=== PATIENT | male | born 1930 | race Caucasian/White ===

== ENCOUNTER 2016-06-16 20:30 | Inpatient (IN) ==
[2016-06-16] MEDS ORDERED: Naloxone 0.4 MG/ML INJ IVP PRN (23:41)
[2016-06-16] MEDS ORDERED: 0.9 % Sodium Chloride 1,000 ML IVC SCH (23:45)
[2016-06-16] MEDS ORDERED: *HR* LORazepam 2 MG/ML VIAL IVP STA (23:45)
--- NOTE | 2016-06-16 23:45 | Internal Med History&Physical ---
Date of Encounter: 06/16/16 Time of Encounter: 23:30 Assessment and Plan (1) Elevated troponin I level Current visit: Yes Status: Acute though he has a history of CAD s/p CABG, he has been symptoms free since 2005, he denies chest pain, he also has no other symptoms suggestive of angina equivalent, his elevated troponin is also in the setting of MINH, thus his elevated troponin is from poor renal clearance and not from ACS, we will recheck his troponin in the morning, if normal we will discharge him home for outpatient followup, if elevated in the setting of normal creatinine we will consider a 2D Echo for wall motion abnormality (2) MINH (acute kidney injury) Current visit: Yes Status: Acute most likely from dehydration, we will hydrate and follow BMP, additionally we will avoid nephrotoxins and renally dose all medications (3) Abdominal pain Current visit: Yes Status: Acute this is chronic, we will manage with pain medications and consider further investigations if it does not improve Qualifiers: Abdominal location: generalized Qualified Code(s): R10.84 - Generalized abdominal pain (4) Chronic atrial fibrillation Current visit: Yes Status: Chronic patient is not on systemic anticoagulation or rate control medications, unclear why, his rate is controlled however, we will monitor for now, he will benefit from low dose beta blockade if no contraindication is found (5) Compression fracture of T12 vertebra Current visit: Yes Status: Chronic will continue pain management with his home pain regimen Qualifiers: Encounter type: sequela Qualified Code(s): M48.54XS - Collapsed vertebra, not elsewhere classified, thoracic region, sequela of fracture (6) Hypothyroidism Current visit: Yes Status: Chronic will continue home dose of synthroid Qualifiers: Hypothyroidism type: postablative Qualified Code(s): E89.0 - Postprocedural hypothyroidism (7) Anxiety Current visit: Yes Status: Chronic will continue home medications Internal Medicine - H&P: HPI Chief complaint: abdominal pain Admitted From: Hospital to Hospital Transfer Plans for Post Hospital Care: Home History of present illness: Mr. Rodriguez is a 85 year old male with a history of intermittent abdominal discomfort who was seen at [facility] with abdominal discomfort on 06/16/16. He reports that this has been ongoing since May 2016 with minimal improvement in his symptoms. This has been associated with bloating sensation and loose stools at the time. At [facility] his troponin was slightly elevated in the setting of elevated creatinine but due to his prior history of CAD s/p CABG in 2005 there was concern for possible ACS though he denied chest pain. He also denied shortness of breath, palpitations, lightheadedness, nausea or vomiting. He reports that since his CABG he has not had any cardiac problems, most recent stress test was 2-3 years ago which was normal. Past Med Surg Social Fam HX - Past Medical History Medical history: arthritis, coronary artery disease, hyperlipidemia, hypertension, peripheral artery disease, thyroid disease Psychiatric history: anxiety, depression - Past Surgical History Surgical History: appendectomy, coronary bypass (CABG) (2005), other ( tonsillectomy, skin tumour removal, ) - Social History Smoking Status: Former smoker Smokeless Tobacco Status: No Alcohol use: none Drug use: none Current living situation: Home - Independent, With Family - Family History Father Living Status: Hx Family Cardiac Disorders: Yes Brother Hx Family Cardiac Disorders: Yes Mother Living Status: Hx Family Cardiac Disorders: Yes Internal Medicine - H&P: Meds Amlodipine [Norvasc] 5 mg PO DAILY 10/26/15 [History] Atorvastatin [Lipitor] 80 mg PO HS 10/26/15 [History] Ezetimibe [Zetia] 10 mg PO DAILY 10/26/15 [History] Telmisartan [Micardis] 80 mg PO DAILY 10/26/15 [History] Docusate [Colace] 100 mg PO BID PRN 11/13/15 [History] Polyethylene Glycol 3350 [MiraLAX] 17 gm PO DAILY 11/13/15 [History] Levothyroxine [Synthroid] 150 mcg PO DAILY@0630 #30 tablet 11/15/15 [Rx] Alprazolam [Xanax 0.25 MG Tablet] 0.25 mg PO TID 06/03/16 [History] Aspirin 81 mg PO DAILY 06/16/16 [History] Buspirone HCl [Buspar] 5 mg PO TID 06/16/16 [History] HYDROcodone/Acet 5/325 mg [[place] 5-325 mg] 1 tab PO Q6H PRN 06/16/16 [History] Naloxegol Oxalate [Movantik] 25 mg PO DAILY 06/16/16 [History] Sertraline [Zoloft] 50 mg PO DAILY 06/16/16 [History] Allergies lactose Allergy (Verified 06/16/16 19:56) Vomiting All Systems PM: A 10-system review of systems was performed and is negative for pertinent findings except as documented above in the HPI. - Constitutional Constitutional: no chills, no fever(s), no night sweats - EENT Eyes: no change in vision, no discharge, no pain, no photophobia Ears: no ear discharge, no ear pain, no tinnitus Nose, mouth and throat: no dysphagia, no nasal discharge, no neck pain, no sore throat - Cardiovascular Cardiovascular ROS IM: no chest pain, no diaphoresis, no dyspnea, no lightheadedness, no palpitations, no syncope - Respiratory Respiratory: no cough, no dyspnea, no wheezing, no excessive phlegm production - Gastrointestinal Gastrointestinal: abdominal pain, belching, bloating, loose stools, no cramping , no dysphagia, no early satiety, no nausea, no vomiting - Genitourinary Genitourinary ROS male: no difficulty urinating, no dysuria - Musculoskeletal Musculoskeletal ROS IM: no numbness, no tingling - Integumentary Integumentary IM: other (nail changes on the left hand), no rash, no unusual bruising - Neurological Neurological ROS: no confusion, no convulsions, no focal weakness, no numbness, no tingling, no tremor(s) - Psychiatric Psychiatric: anxiety, no hallucinations, no hopelessness - Endocrine Endocrine IM: fatigue, no excessive sweating - Allergic/Immunologic Allergic/Immunologic: as per HPI - Constitutional Vitals: Temp Pulse Resp BP Pulse Ox 98.0 F 57 16 146/82 98 06/16/16 21:10 06/16/16 21:10 06/16/16 21:10 06/16/16 21:10 06/16/16 21:10 - General General appearance: Elderly male, lying in bed calmly, hands held in front of him, visible tremors at rest noted in both hands, alert, anxious - Head Head exam: atraumatic, normocephalic, normal inspection - Eye Eye exam: Present: normal appearance, PERRL, EOMI - ENT ENT exam: normal exam, normal oropharynx, mucous membranes moist - Chest Chest inspection: Present: normal inspection, symmetric chest wall rise. Absent : tenderness - Respiratory Respiratory exam: Present: normal lung sounds bilaterally - Cardiovascular Cardiovascular exam: Present: regular rate, irregularly irregular rhythm, systolic murmur noted, no pedal edema - Abdominal Exam Abdominal exam: Present: soft, Non-Tender, normal bowel sounds. Absent: tenderness, distention, guarding, rebound, rigidity - Extremities Exam Extremities exam: Present: normal inspection, full ROM. Absent: tenderness, pedal edema, chronic nail changes on all fingers of the left hand only - Back Exam Back exam: Present: normal inspection, full ROM. Absent: tenderness - Neurological Exam Neurological exam: Present: alert, oriented X3, CN 2-12 grossly intact, non focal motor and sensory exam - Psychiatric Psychiatric exam: looked calm at the time of exam - Skin Skin exam: Present: warm, dry, intact, normal color Internal Med - H&P Results - EKG Data -: EKG Interpreted by Myself (rate controlled AFIB, no ischemic changes)
[2016-06-17] MEDS: Melatonin 3 MG TABLET PO SCH ×2 (00:30→21:33)
[2016-06-17] MEDS: *HR* Heparin 5,000 UNIT/ML VIAL SQ SCH ×3 (05:37→21:34)
[2016-06-17 06:40] LABS: BUN/Creatinine Ratio 23 (6-26); Blood Urea Nitrogen 31 mg/dL (8-26); Calcium 8.7 mg/dL (8.6-10.8); Carbon Dioxide 29 mEq/L (19-29); Chloride 97 mEq/L (98-109); Glucose 78 mg/dL (70-99); Magnesium 2.2 mg/dL (1.6-2.6); Osmolality,Calculated 279 (280-300); Phosphorous 3.2 mg/dL (2.3-4.7); Potassium 4.5 mEq/L (3.5-4.5); Sodium 132 mEq/L (136-145); eGFR For African Americans > 60 (> 60); eGFR For Non-African Americans 51 (> 60)
[2016-06-17] MEDS: ALPRAZolam 0.25 MG TABLET PO SCH ×3 (08:26→21:33)
[2016-06-17] MEDS: Aspirin 81 MG TAB.CHEW PO SCH (08:26)
[2016-06-17] MEDS: ZETIA 10MG PO SCH (08:26)
[2016-06-17] MEDS ORDERED: amLODIPine 5 MG TABLET PO SCH (09:00)
--- NOTE | 2016-06-17 11:20 | Cardiology Consult Note ---
Date of Encounter: 06/17/16 Time of Encounter: 11:15 Assessment and Plan (1) Atrial fibrillation with slow ventricular response Current Visit: Yes Status: Acute H/o chronic afib. Now with symptomatic afib with slow ventricular response and pauses up to 4.6 seconds. Currently not on AV prakash yolie. Check TTE. TSH normal. Electrolytes normal. Avoid AV prakash blockers. Currently hemodynamicaly stable. Will consult with electrphysiology, Dr. Andrea Dunn. Eliquis d/c'd d/t fall risk. Now ambulating without walker and denies falls. Consider restarting eliquis prior to d/c. Discussed with patient and and they are agreeable if indicated. (2) CAD (coronary artery disease) Current Visit: Yes Status: Acute S/p 4V bypass in 2005. Stress test 3-4 years ago that was normal per . Would like f/u with [facility]. Continue asa and statin. No AV prakash blockers d/t bradycardia. Qualifiers: Coronary Disease-Associated Artery/Lesion type: [place] artery [place] vs. transplanted heart: [place] heart Associated angina: angina presence unspecified Qualified Code(s): I25.10 - Atherosclerotic heart disease of [place] coronary artery without angina pectoris (3) Elevated troponin Current Visit: Yes Status: Acute Mild troponin elevation at 0.22, 0.26. May be demand ischemia in the setting of MINH and severe bradycardia. Continue to trend troponin and check echo. Currently pain free. Discussion w patient/family: The assessment and plan as outlined above was discussed with the patient and/or family members who expressed understanding and agreement. All questions were answered. Thank you for involving us in the care of your patient. Please call with any questions. History of Present Illness Consult date: 06/17/16 Requesting physician: Quique Davis Consult reason: atrial fibrillation with slow ventricular response Chief complaint: abdominal pain, gas, bloating History of present illness: Mr. Rodriguez is a 85 year old male with a history of CAD s/p CABG following with Dr. James in [place], chronic afib, HTN, and HLD. He presented to [facility] with pain all over and abdominal pain and bloating. He has chronic 'gas pains" since last year after fracturing his T12 spine. He also c/o panic attacks since then. He describes his discomfort as a fullness/ pressure from his midepigastric area to his upper chest. He also occasionally has pain in his left elbow associated with his pain. He admits to dizziness at rest or lightheadedness. He sometimes feels he is going to pass out. All of his symptoms seemed to start after his back fracture. Since his back fracture he does minimal activity. Denies increased discomfort with activity. His initial work-up revealed troponin 0.22 so he was transferred to [place] for further evaluation. He was seen two weeks prior with similar symptoms and troponin was negative at that time. Overnight he was seen to have atrial fibrillation with slow ventricular response and pauses up to 4.6 seconds long. Cardiology consulted for further evaluation. Reports eliquis being discontinued by PCP after back fracture d/t fall risk. On my exam he is symptom free sitting in bed. HR currently in the 40's. Past Med Surg Social Fam HX - Past Medical History Medical history: arthritis, atrial fibrillation, coronary artery disease, hyperlipidemia, hypertension, peripheral artery disease, thyroid disease, other (thoracic and lumbar spine fractures.) Psychiatric history: anxiety, depression - Past Surgical History Surgical History: appendectomy, coronary bypass (CABG) (2005), other ( tonsillectomy, skin tumour removal, ) - Social History Smoking Status: Former smoker Smokeless Tobacco Status: No Alcohol use: none Drug use: none - Family History Father Living Status: Hx Family Cardiac Disorders: Yes Brother Hx Family Cardiac Disorders: Yes Mother Living Status: Hx Family Cardiac Disorders: Yes Medications and Allergies Amlodipine [Norvasc] 5 mg PO DAILY 10/26/15 [History] Atorvastatin [Lipitor] 80 mg PO HS 10/26/15 [History] Ezetimibe [Zetia] 10 mg PO DAILY 10/26/15 [History] Telmisartan [Micardis] 80 mg PO DAILY 10/26/15 [History] Docusate [Colace] 100 mg PO BID PRN 11/13/15 [History] Polyethylene Glycol 3350 [MiraLAX] 17 gm PO DAILY 11/13/15 [History] Levothyroxine [Synthroid] 150 mcg PO DAILY@0630 #30 tablet 11/15/15 [Rx] Alprazolam [Xanax 0.25 MG Tablet] 0.25 mg PO TID 06/03/16 [History] Aspirin 81 mg PO DAILY 06/16/16 [History] Buspirone HCl [Buspar] 5 mg PO TID 06/16/16 [History] HYDROcodone/Acet 5/325 mg [[place] 5-325 mg] 1 tab PO Q6H PRN 06/16/16 [History] Naloxegol Oxalate [Movantik] 25 mg PO DAILY 06/16/16 [History] Sertraline [Zoloft] 50 mg PO DAILY 06/16/16 [History] Allergies lactose Allergy (Verified 06/16/16 19:56) Vomiting All Systems Review: A 10-system review of systems was performed and is negative for pertinent findings except as documented above in the HPI. Physical Examination Vital Signs, Last 4 Hours Temp Pulse Resp BP Pulse Ox 06/17/16 11:07 97.7 F 55 16 156/77 100 06/17/16 08:39 100 General: Conversant, No Apparent Distress, Other (Frail elderly male.) HEENT: Atraumatic, Normocephaly, Mucus Membranes Moist Neck: No JVD, Normal carotid pulses Cardiac: Other (Irregularly irregular.) Lungs: Normal Breath Sounds, No Wheeze, Rales, Rhonchi Neuro: Alert and responsive, No focal deficits noted Abdomen: Soft, Non-Tender Skin: No rashes noted on visualized skin Musculoskeletal: No Chest Wall Tenderness Extremities: No Clubbing, No Cyanosis, No Edema, Normal Pulses Results 06/17/16 05:37 Lab Results 06/17/16 06/17/16 06/17/16 05:37 05:37 08:20 Sodium 132 L Potassium 4.5 Chloride 97 L Carbon Dioxide 29 BUN 31 H Creatinine 1.34 H Glucose 78 Calcium 8.7 Magnesium 2.2 Troponin I 0.26 H* TSH 0.738 - Imaging and Cardiology Echo: report reviewed (11/2015-EF 65%, moderate to severely dilated LA, moderate tricuspid regurgitation, moderate pulmonary hypertension. RVSP 54) - EKG Interpretation EKG results cardiology: personally reviewed (ATrial fibrillation, HR 76, no acute ST changes.) Consult Discharge Plan - Plan Referrals: Saul Rice MD [Primary Care Provider] -
--- NOTE | 2016-06-17 19:20 | Internal Med Progress Note ---
Date of Encounter: 06/17/16 Time of Encounter: 10:00 - Assessment and plan (1) Chronic atrial fibrillation Current Visit: Yes Status: Chronic Assessment and plan: Bradycardic. Occasionally has dizziness. Card evaluation - anticipate pacemaker in the future. (2) Constipation Current Visit: No Status: Acute Assessment and plan: Chronic condition. Continue supportive medications. Qualifiers: Constipation type: other constipation type Qualified Code(s): K59.09 - Other constipation (3) Compression fracture of T12 vertebra Current Visit: Yes Status: Chronic Assessment and plan: Pain control. Supportive care at this time. Qualifiers: Encounter type: sequela Qualified Code(s): M48.54XS - Collapsed vertebra, not elsewhere classified, thoracic region, sequela of fracture (4) Hypothyroidism Current Visit: Yes Status: Chronic Assessment and plan: Continue supplementation. Qualifiers: Hypothyroidism type: postablative Qualified Code(s): E89.0 - Postprocedural hypothyroidism (5) MINH (acute kidney injury) Current Visit: Yes Status: Acute Assessment and plan: Recheck labs tomorrow. (6) CAD (coronary artery disease) Current Visit: Yes Status: Acute Assessment and plan: Cardiology eval. Continue current management. Qualifiers: Coronary Disease-Associated Artery/Lesion type: [place] artery [place] vs. transplanted heart: [place] heart Associated angina: angina presence unspecified Qualified Code(s): I25.10 - Atherosclerotic heart disease of [place] coronary artery without angina pectoris - Subjective Interval history: Mr. Rodriguez is currently admitted for bradycardia and elevated troponin. He is high risk due to potential for worsening cardiac status. Mr. Rodriguez is having some back pain from the vertebral fracture. No CP or SOB. Heart rate has been 30-50. Dizzy occasionally. Denies other issues at this time. No fever or chills. - Constitutional Vitals: Temp Pulse Resp BP Pulse Ox 97.4 F L 42 16 148/82 98 06/17/16 15:37 06/17/16 15:37 06/17/16 15:37 06/17/16 15:37 06/17/16 15:37 General appearance: Present: A&O X 3, pleasant, answers questions appropriately - Head Head exam: Present: normocephalic - Eye Eye exam: Present: EOMI, conjuntiva pink - ENT ENT exam: Present: mucous membranes moist - Respiratory Respiratory exam: Present: decreased breath sounds, CTAB - Cardiovascular Cardiovascular exam: Present: bradycardia, irregular rhythm - GI/Abdominal GI/Abdominal exam: Present: soft, tenderness (Diffuse discomfort with no peritoneal signs.) - Extremities Exam Extremities exam: Present: warm. Absent: tenderness - Neurological Exam Neurological exam: Present: alert, oriented X3 - Psychiatric Psychiatric exam: Present: normal affect, normal mood - Skin Skin exam: Present: warm. Absent: rash Internal Medicine: Result - Labs CBC & Chem 7: 06/17/16 05:37 Labs: BMP 06/17/16 05:37 Sodium 132 L Potassium 4.5 Chloride 97 L Carbon Dioxide 29 BUN 31 H Creatinine 1.34 H Glucose 78 Calcium 8.7 Cardiac Enzymes 06/17/16 06/17/16 Range/Units 05:37 16:01 Troponin I 0.26 H* 0.23 H* (0-0.03) ng/mL Consult Discharge Plan - Plan Instructions: Myocardial Infarction (DC), Atrial Fibrillation (DC), Chest Pain (DC), Vertebral Compression Fracture (DC), Vertebral Compression Fracture (GEN) , Hypothyroidism (DC) Referrals: Saul Rice MD [Primary Care Provider] -
[2016-06-18] MEDS: *HR* Heparin 5,000 UNIT/ML VIAL SQ SCH ×2 (05:32→16:13)
[2016-06-18 06:33] LABS: Calcium 8.5 mg/dL (8.6-10.8); Magnesium 2.3 mg/dL (1.6-2.6); Potassium 4.6 mEq/L (3.5-4.5)
--- NOTE | 2016-06-18 06:47 | ECHO - Doppler Report ---
Echocardiogram Name: Sarabjit Rodriguez Date of Study: 06/17/2016 Date: 1930 Ht: 63.0 in Medical Record#: [id number] Age: 85 Wt: 142.0 lb Gender: Male BSA: 1.67 Order #: [id number] Location: [facility] Room #: [id number] Reading Physician: Shadi Vazquez MD, [facility] Insurance Sales Supervisor: Seble Pollack RDCS Ordering Physician: Richard Solis CNP Primary Physician: Saul Rice MD Indications: Elevated Troponin, Bradycardia Impressions: Atrial fibrillation with slow ventricular response. Normal LV systolic function, LVEF 65-70%. Right ventricle was not well visualized. It appears grossly normal in size and function. Moderately dilated left atrium. No significant valvular dysfunction. Mild pulmonary hypertension, estimated RVSP = 39 mmHg. Left Ventricular Wall Motion: Rest Echo Findings All wall segments showed normal motion. Findings: Study Quality * Suboptimal echo windows. ECG Findings * Atrial fibrillation with slow ventricular response. Left Ventricle * Normal LV systolic function, LVEF 65-70%. * Normal LV chamber size and wall thickness. * Indeterminate diastolic function due to atrial fibrillation. Right Ventricle * Right ventricle was not well visualized. It appears grossly normal in size and function. Left Atrium * Moderately dilated left atrium. Right Atrium * Normal right atrial size. Aorta * Normally sized aortic root. Pericardium * There is no pericardial effusion present. IVC * The IVC was not visualized. Aortic Valve * Aortic valve not well visualized. Appears moderately sclerotic. * No aortic stenosis. * Trace aortic regurgitation. Mitral Valve * Mild mitral annular calcification * No mitral stenosis. * Trace mitral regurgitation. Tricuspid Valve * Tricuspid valve not well visualized. * No tricuspid stenosis. * Trace tricuspid regurgitation. * Mild pulmonary hypertension, estimated RVSP = 39 mmHg. Pulmonic Valve * Pulmonic valve not well visualized. * No pulmonic stenosis. * No pulmonic regurgitation. History Hypertension Hypercholesteremia Family History of CAD History of CAD/PTCA Coronary Artery Bypass Graft 11/14/2015 a Previous Echo was performed. Measurements: BP: 156/ 77 2D Normal Values IVSd: 1.00 cm 0.6 - 1.0 cm LVIDd: 4.10 cm 3.7 - 5.6 cm LVPWd: 1.00 cm 0.6 - 1.1 cm LVIDs: 2.50 cm 1.5 - 3.6 cm AO: 3.00 cm < 4.0 cm LA volume: 70 Mitral Valve Peak E:1.19 m/sec Peak E' Lat Edy:7.29 cm/s Peak E' Med Edy:6.2 cm/s E/E' Lat Ratio:16.3 E/E' Med Ratio:19.2 Tricuspid Valve TV Regurg Peak Grad: 34.00mmHg TV Regurg Peak Edy: 2.91m/sec Updated by Shadi Vazquez MD, [facility] on 06/18/2016 6:41:07 AM electronically signed on 06/18/2016 6:41:38 AM with status of Final Wall Motion [place]: 1=Normal, 2=Hypokinesis, 3=Akinesis, 4=Dyskinesis, 5=Aneurysmal, 6=Hyperkinetic, X=Not Visualized (Blank)=Missing
[2016-06-18] MEDS: *HR* HYDROcodone/Acet 5/325 mg TABLET PO PRN ×2 (07:36→13:12)
[2016-06-18] MEDS: Simethicone 80 MG TAB.CHEW PO PRN ×3 (07:36→19:33)
[2016-06-18 08:06] LABS: Hematocrit 37.7 % (37.5-50.1); Immature Platelets 1.3 % (1.1-6.1); Mean Corpuscular HGB Conc 34.5 g/dL (31.6-35.5); Mean Corpuscular Hemoglobin 32.3 pg (28.0-33.3); Mean Corpuscular Volume 93.5 fL (83.0-100.0); Mean Platelet Volume 8.8 fL (9.4-12.4); Red Blood Count 4.03 M/mcL (4.19-5.50)
[2016-06-18] MEDS: ALPRAZolam 0.25 MG TABLET PO SCH ×2 (08:44→16:13)
[2016-06-18] MEDS: Aspirin 81 MG TAB.CHEW PO SCH (08:44)
[2016-06-18] MEDS: ZETIA 10MG PO SCH (08:45)
--- NOTE | 2016-06-18 15:11 | Cardiology Progress Note ---
Date of Encounter: 06/18/16 Time of Encounter: 14:30 Assessment and Plan (1) Atrial fibrillation with slow ventricular response Current Visit: Yes Status: Acute Initial presentation abdominal pain and bloating/gas pains. H/o chronic afib. Case was discussed with EP yesterday; no emergent need for PPM, recommend outpatient follow-up with EP for PPM evaluation. TSH normal, no acute electrolyte abnormalities. HR 50-60's afib at bedside upon exam. 12 hour tele: avg HR=47. Longest pause 3.8 seconds--nocturnal hours. HR 30's during nocturnal hours. He reports dizziness with abrupt position change in the morning only--resolves after a few seconds-minutes. TTE 06/18/16: EF 65-70%, moderately dilated left atrium, no significant valvular dysfunction, normal wall motion. No further inpatient recommendations from Cardiology standpoint. He will be contacted by Cardio office early next week with appointment date and time. (2) Elevated troponin I level Current Visit: Yes Status: Acute Elevated troponin in the setting of abdominal pain, bradycardia, and MINH. He denies chest pain or discomfort. Hx of bypass in 2005. Continue asa and statin. No betablocker due to bradycardia. TTE shows preserved LVEF, 65-70%, moderately dilated left atrium, no significant valvular dysfunction, normal wall motion. (3) CAD (coronary artery disease) Current Visit: Yes Status: Acute S/p 4V bypass in 2005. Stress test 3-4 years ago that was normal per . Would like f/u with [facility]. Continue asa and statin. No AV prakash blockers d/t bradycardia. Qualifiers: Coronary Disease-Associated Artery/Lesion type: [place] artery [place] vs. transplanted heart: [place] heart Associated angina: without angina Qualified Code(s): I25.10 - Atherosclerotic heart disease of [place] coronary artery without angina pectoris (4) MINH (acute kidney injury) Current Visit: Yes Status: Acute SCr remains elevated, previously normal. Defer further recommendations to primary service. Discussion w patient/family: The assessment and plan as outlined above was discussed with the patient and/or family members who expressed understanding and agreement. All questions were answered. Thank you for involving us in the care of your patient. Please call with any questions. The patient will be discussed and reviewed with Dr. Morocho; changes to be made accordingly. Subjective Principal diagnosis: Abdominal pain Interval history: Seen and examined. Reports lower abdominal pain and gas pain this morning and afternoon. 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 Denies dizziness, lightheadedness, syncope, or palpitations overnight. Objective General: Conversant, No Apparent Distress HEENT: Atraumatic, Normocephaly Cardiac: Other (irregularly irregular) Lungs: Normal Breath Sounds Neuro: Alert and responsive Abdomen: Other (mildly distended, tender) Extremities: No Edema, Normal Pulses Results 06/18/16 07:56 06/18/16 05:31 Lab Results 06/17/16 06/18/16 06/18/16 16:01 05:31 07:56 WBC 10.1 Hgb 13.0 D Hct 37.7 Plt Count 272 Sodium 131 L Potassium 4.6 H Chloride 96 L Carbon Dioxide 26 BUN 37 H Creatinine 1.37 H Glucose 78 Calcium 8.5 L Magnesium 2.3 Troponin I 0.23 H* Active Medications Acetaminophen/Hydrocodone Bitart ([place] 5-325 Mg) 1 tab PO Q6H PRN PRN Reason: Pain Stop: 12/16/16 23:44 Last Admin: 06/18/16 13:12 Dose: 1 tab Alprazolam (Xanax) 0.25 mg PO TID [facility] PRN Reason: Protocol Stop: 12/17/16 09:01 Last Admin: 06/18/16 08:44 Dose: 0.25 mg Amlodipine Besylate (Norvasc) 5 mg PO DAILY [facility] PRN Reason: Protocol Stop: 12/18/16 15:16 Amlodipine Besylate (Norvasc) 10 mg PO ONCE ONE PRN Reason: Protocol Stop: 06/19/16 15:31 Aspirin (Aspirin) 81 mg PO DAILY [facility] Stop: 12/17/16 09:01 Last Admin: 06/18/16 08:44 Dose: 81 mg Atorvastatin Calcium (Lipitor) 80 mg PO HS [facility] Stop: 12/17/16 21:01 Last Admin: 06/17/16 21:33 Dose: 80 mg Buspirone HCl (Buspar) 5 mg PO TID [facility] Stop: 12/17/16 09:01 Last Admin: 06/18/16 08:44 Dose: 5 mg Docusate Sodium (Colace) 100 mg PO BID PRN; Protocol PRN Reason: Constipation Stop: 12/16/16 23:44 Heparin Sodium (Porcine) (Heparin) 5,000 unit SQ Q8HCO [facility] Stop: 12/17/16 06:01 Last Admin: 06/18/16 05:32 Dose: 5,000 unit Levothyroxine Sodium (Synthroid) 150 mcg PO DAILY@0630 [facility] Stop: 12/17/16 06:31 Last Admin: 06/18/16 05:32 Dose: 150 mcg Losartan Potassium (Cozaar) 100 mg PO DAILY [facility] Stop: 12/17/16 09:01 Last Admin: 06/18/16 08:44 Dose: 100 mg Melatonin (Melatonin) 3 mg PO HS [facility] Stop: 12/16/16 23:46 Last Admin: 06/17/16 21:33 Dose: 3 mg Naloxone HCl (Narcan) 0.4 mg IVP Q2MIN PRN PRN Reason: Opioid Reversal Stop: 12/16/16 23:42 Pharmacy Profile Note (Patient Taking Own Medication) 1 each PO DAILY [facility] Stop: 12/17/16 09:01 Last Admin: 06/18/16 08:45 Dose: Not Given Pharmacy Profile Note (Patient Taking Own Medication) 1 each PO DAILY [facility] Stop: 12/17/16 09:01 Last Admin: 06/18/16 08:45 Dose: Not Given Polyethylene Glycol (Miralax) 17 gm PO DAILY [facility] Stop: 12/17/16 09:01 Last Admin: 06/18/16 08:46 Dose: 17 gm Sertraline HCl (Zoloft) 50 mg PO DAILY [facility] Stop: 12/17/16 09:01 Last Admin: 06/18/16 08:44 Dose: 50 mg Simethicone (Gas-X) 80 mg PO TID PRN PRN Reason: Dyspepsia Stop: 12/16/16 23:45 Last Admin: 06/18/16 11:25 Dose: 80 mg Zolpidem Tartrate (Ambien) 5 mg PO HS PRN; Protocol PRN Reason: Insomnia Stop: 12/16/16 23:45 - Imaging and Cardiology Echo: report reviewed - EKG Interpretation EKG results cardiology: personally reviewed Consult Discharge Plan - Plan Instructions: Myocardial Infarction (DC), Atrial Fibrillation (DC), Chest Pain (DC), Vertebral Compression Fracture (DC), Vertebral Compression Fracture (GEN) , Hypothyroidism (DC) Referrals: Saul Rice MD [Primary Care Provider] -
[2016-06-18 16:31] VITALS: BP 156/74
--- NOTE | 2016-06-18 19:18 | Discharge Summary ---
Date of Encounter: 06/18/16 Time of Encounter: 15:00 - Discharge Diagnosis (1) Chronic atrial fibrillation Priority: Primary Status: Chronic (2) Constipation Priority: Secondary Status: Acute Qualifiers: Constipation type: other constipation type Qualified Code(s): K59.09 - Other constipation (3) Compression fracture of T12 vertebra Priority: Primary Status: Chronic Qualifiers: Encounter type: sequela Qualified Code(s): M48.54XS - Collapsed vertebra, not elsewhere classified, thoracic region, sequela of fracture (4) Hypothyroidism Priority: Secondary Status: Chronic Qualifiers: Hypothyroidism type: postablative Qualified Code(s): E89.0 - Postprocedural hypothyroidism (5) MINH (acute kidney injury) Priority: Secondary Status: Resolved (6) CAD (coronary artery disease) Priority: Secondary Status: Acute Qualifiers: Coronary Disease-Associated Artery/Lesion type: [place] artery [place] vs. transplanted heart: [place] heart Associated angina: without angina Qualified Code(s): I25.10 - Atherosclerotic heart disease of [place] coronary artery without angina pectoris - Discharge Medications Home Medications: Amlodipine [Norvasc] 5 mg PO DAILY 10/26/15 [History] Atorvastatin [Lipitor] 80 mg PO HS 10/26/15 [History] Ezetimibe [Zetia] 10 mg PO DAILY 10/26/15 [History] Telmisartan [Micardis] 80 mg PO DAILY 10/26/15 [History] Docusate [Colace] 100 mg PO BID PRN 11/13/15 [History] Polyethylene Glycol 3350 [MiraLAX] 17 gm PO DAILY 11/13/15 [History] Levothyroxine [Synthroid] 150 mcg PO DAILY@0630 #30 tablet 11/15/15 [Rx] Alprazolam [Xanax 0.25 MG Tablet] 0.25 mg PO TID 06/03/16 [History] Aspirin 81 mg PO DAILY 06/16/16 [History] Buspirone HCl [Buspar] 5 mg PO TID 06/16/16 [History] HYDROcodone/Acet 5/325 mg [[place] 5-325 mg] 1 tab PO Q6H PRN 06/16/16 [History] Naloxegol Oxalate [Movantik] 25 mg PO DAILY 06/16/16 [History] Sertraline [Zoloft] 50 mg PO DAILY 06/16/16 [History] Amlodipine [Norvasc] 5 mg PO DAILY tablet 06/18/16 [Rx] Melatonin 3 mg PO HS tablet 06/18/16 [Rx] Simethicone [Gas-X] 80 mg PO TID PRN #0 tab.chew 06/18/16 [Rx] Allergies/Adverse Reactions: Allergies lactose Allergy (Verified 06/16/16 19:56) Vomiting Procedures/tests Complete & Pending: Procedures Performed prior 72 hours Category Date Time Status EV echocardiogram Routine Y 06/17/16 11:21 Completed Date of admission: 06/17/16 18:36 Primary care physician: Saul Rice MD Consults: 06/17/16 08:28 Consult to Cardiology [CONS] Routine Comment: Consulting Provider: Cardiology Margy Reason for Consult: Bradycardia Time Notified: 08:25 Call Completed: Yes 06/18/16 10:41 Consult to Occupational Therapy [CONS] Routine Comment: Evaluate, develop and implement POC Consult to Physical Therapy [CONS] Routine Comment: Evaluate, develop and implement POC Discharging clinician: Quique Davis Anticipated date of discharge: 06/18/16 - Patient Status Disposition: Home, Self-Care Condition: Good Functional capacity at discharge: independent ambulation Overall status at discharge: patient is progressing back to baseline - Discharge Instructions Instructions: Myocardial Infarction (DC), Atrial Fibrillation (DC), Chest Pain (DC), Vertebral Compression Fracture (DC), Vertebral Compression Fracture (GEN) , Hypothyroidism (DC) Follow Up With: Saul Rice MD [Primary Care Provider] - - Diet and Activity Activity: increase activity as tolerated Diet: advance to your usual diet Hospital course: Mr. Rodriguez is a 85 year old male with history of falls and vertebral fracture transferred from [facility] due to abd pain. He also was noted to have slight elevation in his troponin. He had no chest pain. Mr. Rodriguez was admitted to [facility]. He had serial troponin and was seen by cardiology due to heartrates in 30s at time with chronic a fib. He is on no prakash blocking agents. He was noted to have significant constipation and was given therapy with improvement. He was also started on Gas X with relief. It was decided to pursue further cardiac workup/probable pacer as outpatient. He was seen by PT/OT and no needs identified. He was felt stable for discharge home. At this time he is comfortable. His vitals are stable and he is afebrile. - Time Spent with Patient Total time spent providing and/or coordinating discharge services:39min - Constitutional Vitals: Temp Pulse Resp BP Pulse Ox 98 F 50 18 156/74 95 06/18/16 16:29 06/18/16 16:29 06/18/16 16:29 06/18/16 16:29 06/18/16 16:29 General appearance: Present: A&O X 3, pleasant, answers questions appropriately - Head Head exam: Present: normocephalic - Eye Eye exam: Present: EOMI, conjuntiva pink - ENT ENT exam: Present: mucous membranes dry - Respiratory Respiratory exam: Present: decreased breath sounds, CTAB - Cardiovascular Cardiovascular exam: Present: bradycardia, irregular rhythm - GI/Abdominal GI/Abdominal exam: Present: soft. Absent: mass, tenderness - Extremities Exam Extremities exam: Present: warm. Absent: pedal edema, tenderness - Neurological Exam Neurological exam: Present: alert, oriented X3, no focal deficits - Psychiatric Psychiatric exam: Present: normal affect, normal mood - Skin Skin exam: Present: dry, warm. Absent: rash
[2016-06-19] MEDS ORDERED: amLODIPine 5 MG TABLET PO SCH (09:00)
[2016-06-19] MEDS ORDERED: amLODIPine 5 MG TABLET PO ONE (15:30)
== END 2016-06-18 20:30 | disposition home or self-care (01) | DRG 309 ==
LOC: 2NENU
PROVIDERS: ADMIT Internal Medicine; ATTEND Internal Medicine

== ENCOUNTER 2016-08-20 06:35 | Inpatient (IN) ==
[2016-08-20] MEDS ORDERED: Dexmedetomidine HCl 400 MCG/100 ML MLS IVC ONE (09:55)
[2016-08-20] MEDS: Dexmedetomidine HCl 400 MCG/100 ML MLS IVC SCH ×2 (10:00→22:43)
[2016-08-20 10:39] LABS: ABG Base Excess -11.9 mEq/L (-2.0 to 3.0); ABG HCO3 12.8 mEQ/L (21-27); ABG Oxygen Saturation 100 % (95-98); ABG PCO2 26 mmHg (35-45); ABG PO2 238 mmHg (85-104); ABG TCO2 13.6 mEq/L (20-26)
[2016-08-20 10:40] LABS: Blood Gas FiO2 80 %; Blood Gas PEEP 5 cm H2O; Blood Gas Respiration Rate 12; Blood Gas VT 500 cc
[2016-08-20 10:59] LABS: Hematocrit 40.8 % (37.5-50.1); Hemoglobin 13.7 g/dL (12.9-16.9); Mean Corpuscular HGB Conc 33.6 g/dL (31.6-35.5); Mean Corpuscular Hemoglobin 32.4 pg (28.0-33.3); Mean Corpuscular Volume 96.5 fL (83.0-100.0); Mean Platelet Volume 9.3 fL (9.4-12.4); Platelet Count 151 K/mcL (140-400); Red Blood Count 4.23 M/mcL (4.19-5.50); Red Cell Distribution Width 13.5 % (11.5-14.5)
[2016-08-20] MEDS: FentaNYL (PF) 1,000 MCG in 0.9 % Sodium Chloride 80 ML IVC SCH (11:11)
[2016-08-20 11:14] LABS: Albumin 2.7 g/dL (3.5-5.0); Albumin/Globulin Ratio 1.1 (1.1-2.2); Bilirubin,Total 1.4 mg/dL (0.2-1.2); Calcium 9.9 mg/dL (8.6-10.8); Globulin 2.4 g/dL (2.4-3.5); Magnesium 3.8 mg/dL (1.6-2.6); Potassium 3.2 mEq/L (3.5-4.5); Total Protein 5.1 g/dL (6.0-8.3)
[2016-08-20 11:25] LABS: Ionized Calcium 1.35 mmol/L (1.15-1.35)
[2016-08-20 11:34] LABS: Lymphocytes # 1.2 K/mcL (0.6-4.6); Monocytes # 0.3 K/mcL (0.0-1.3); Neutrophils # 13.6 K/mcL (1.6-8.9); Platelet Estimate Normal (Normal)
[2016-08-20] MEDS ORDERED: 0.9 % Sodium Chloride 1,000 ML IVC ONE (11:34)
[2016-08-20] MEDS: Hydrocortisone Sodium Succ 100 MG/2 ML VIAL IVP SCH ×3 (11:58→23:27)
[2016-08-20] MEDS ORDERED: Naloxone 0.4 MG/ML INJ IVP PRN (12:02)
[2016-08-20] MEDS ORDERED: Ondansetron 4 MG/2 ML VIAL IVP PRN (12:02)
[2016-08-20] MEDS ORDERED: Potassium Chloride 40 MEQ/200 ML BAG IVPB PRN (12:10)
[2016-08-20] MEDS ORDERED: Lacri-Lube 3.5 GM TUBE BOTH EYES PRN (12:13)
[2016-08-20] MEDS ORDERED: 0.9 % Sodium Chloride 500 ML ONE (12:34)
[2016-08-20] MEDS: Vasopressin 40 UNIT in D5% in Water 100 ML IV SCH (12:38)
[2016-08-20] MEDS: Pantoprazole 40 MG VIAL IVPB SCH (12:44)
[2016-08-20] MEDS ORDERED: Vancomycin 1,000 MG in D5% in Water 250 ML IVPB SCH ×2 (13:00)
[2016-08-20] MEDS: 0.9 % Sodium Chloride 1,000 ML IVC SCH ×4 (13:05→23:36)
[2016-08-20] MEDS: Thiamine (B-1) 200 MG in D5% in Water 50 ML IVPB SCH ×2 (13:13→23:26)
[2016-08-20] MEDS: Norepinephrine 4 MG in D5% in Water 250 ML IVC SCH ×4 (13:58→21:50)
[2016-08-20] MEDS: EPINEPHrine 5 MG in D5% in Water 250 ML IVC SCH ×2 (14:24→23:38)
[2016-08-20] MEDS: Piperacillin/Tazobactam 3.375 GM in D5% in Water (Mini-Bag+) 100 ML IVPB SCH ×2 (14:27→19:27)
--- NOTE | 2016-08-20 14:59 | Pulmonology History & Physical ---
<SupaLarisa Danicadaniel Monaco - Last Filed: 08/20/16 16:21> Date of Encounter: 08/20/16 Time of Encounter: 10:00 Assessment and Plan (1) Septic shock Current visit: Yes Status: Acute Patient presented to ICU ventilated and sedated with hypotension requiring levaophed Initial lactate of 13.7 Blood cultures x 2 were collected at [place]. These are pending Patient received 1g Vancomycin and 1g Rocephin at [place] We have added Epinephrine for pressure support Hydrocortisone for stress steroid Source of may be urinary as UA demonstrated moderate bacteria and blood in urine Abdomen is distended and firm, and an acute abdominal process is suspected However, patient has not been stable enough to tolerate transport to CT scanner CT abdomen is pending Also, liver US is pending as AST and ALT elevation indicate Shock Liver TANK COOPER/Neuro/Sedation: Sedation with Precedex and Fentanyl Pulm: Ventilated and Sedated. VT 500, RR 12, PEEP 5, FIO2 50%, saturating 96% Cardiac: Hypotensive and currently on Levophed and Vasopressin. Arterial line in place BP 72/41. Chronic afib with pacemaker. Elevated troponin of 0.20 in the setting of MINH. Troponin is trending up from 0.06 this morning. I suspect this is secondary to MINH and demand ischemia. GI/Fluids/Electrolytes/Hydration: OG tube in place with 2L of drainage, Patient has received a total of 4.2L of fluid Renal: MINH with Cr f 1.76 ID: UA demonstrated moderate bacteria and blood in urine, uncertain if there is an additional source for the sepsis. Patient is on Zosyn and renally dosed Vanc. Heme/Onc: Leukocytosis with WBC 16.9. Broad spectrum antibiotics are being administered. Endocrine: Start Accuchecks [id number]. Skin: Skin precautions in place per nursing protocol Lines: Right femoral line, Right radial arterial line, ET tube, French. (2) MINH (acute kidney injury) Current visit: No Status: Acute (3) UTI (urinary tract infection) Current visit: Yes Status: Acute Qualifiers: Urinary tract infection type: site unspecified (4) Acute respiratory failure Current visit: Yes Status: Acute (5) Elevated troponin Current visit: No Status: Acute (6) Hyponatremia Current visit: No Status: Acute (7) Chronic atrial fibrillation Current visit: No Status: Chronic (8) Hypothyroidism Current visit: No Status: Chronic Qualifiers: Hypothyroidism type: postablative Qualified Code(s): E89.0 - Postprocedural hypothyroidism (9) Hypermagnesemia Current visit: Yes Status: Acute (10) Lactic acidosis Current visit: Yes Status: Acute (11) Shock liver Current visit: Yes Status: Acute (12) DVT prophylaxis Current visit: Yes Status: Acute History of Present Illness Chief complaint: acute respiratory failure, sepsis HPI: Mr. Rodriguez is a 85 year old male past medical history significant for chronic A. fib, CAD, hypertension, hyperlipidemia, peripheral artery disease, thyroid disease, anxiety, depression who presents to [facility] by [facility] from [place] ED. Patient presented to the [place] ED last night with difficulty breathing and change in mental status. Patient was obtunded and non-verbal at the time of presentation. His complained that the patient had "not been himself" for the previous 3 days. Upon presentation to [facility] ICU by medflight, the patient had been given 3.5L NS and 1-2L of half-normal saline. Patient was transported on 8mcg/hr of Levophed. His vitals at presentation to the ICU were 95.4 F, HR 64, RR 24, 89/46, Oxygen saturation 100% while ventilated and sedated at FI02 of 80%. Per report given by nurse, the patient was believed to have a picture of sepsis shock. I personally spoke to the who presented the patient's living will indicating that patient desired to be DNR. Past Med Surg Social Fam HX - Past Medical History Medical history: arthritis, atrial fibrillation, coronary artery disease, hyperlipidemia, hypertension, peripheral artery disease, thyroid disease, other Psychiatric history: anxiety, depression - Past Surgical History Surgical History: appendectomy, coronary bypass (CABG), other, pacemaker - Social History Smoking Status: Former smoker Smokeless Tobacco Status: No Alcohol use: none Drug use: none - Family History Father Living Status: Hx Family Cardiac Disorders: Yes Brother Hx Family Cardiac Disorders: Yes Mother Living Status: Hx Family Cardiac Disorders: Yes Medications and Allergies Atorvastatin [Lipitor] 80 mg PO HS 10/26/15 [History] Ezetimibe [Zetia] 10 mg PO DAILY 10/26/15 [History] Docusate [Colace] 100 mg PO BID PRN 11/13/15 [History] Buspirone HCl [Buspar] 5 mg PO TID 06/16/16 [History] HYDROcodone/Acet 5/325 mg [[place] 5-325 mg] 1 tab PO Q6H PRN 06/16/16 [History] Melatonin 3 mg PO HS tablet 06/18/16 [Rx] amLODIPine [Norvasc] 5 mg PO DAILY tablet 06/18/16 [Rx] Levothyroxine [Synthroid] 150 mcg PO DAILY 06/25/16 [History] Alendronate Sodium [Fosamax] 35 mg PO QWEEK 07/12/16 [History] Apixaban [Eliquis] 2.5 mg PO BID 07/12/16 [History] Calcium Citrate/Vitamin D3 [Calcium Citrate-Vit D3 Tablet] 1 tab PO DAILY [History] Telmisartan [Micardis] 80 mg PO DAILY 07/12/16 [History] ALPRAZolam [Xanax 0.25 MG Tablet] 0.25 mg PO TID PRN 08/20/16 [History] Multivitamin [Multi-Day Vitamins] 1 tab PO DAILY 08/20/16 [History] Naloxegol Oxalate [Movantik] 25 mg PO DAILY 08/20/16 [History] Polyethylene Glycol 3350 [MiraLAX bowel prep] 255 gm PO PRN PRN 08/20/16 [ History] Ranitidine HCl [Zantac] 150 mg PO BID 08/20/16 [History] Venlafaxine [Effexor] 37.5 mg PO DAILY 08/20/16 [History] Vit A/Vit C/Vit E/Zinc/Copper [Preservision Areds Tablet] 1 tab PO DAILY [History] Allergies lactose Allergy (Verified 06/16/16 19:56) Vomiting ROS unobtainable: due to endotracheal tube All Systems: A 10-system review of systems was performed and is negative for pertinent findings except as documented above in the HPI. Physical Examination Vital Signs: Vital Signs, Last 4 Hours Temp Pulse Resp BP Pulse Ox 08/20/16 14:00 76 25 72/41 96 08/20/16 13:00 60 17 66/44 96 08/20/16 12:00 95.8 F L 60 15 67/42 96 08/20/16 11:49 16 71/38 94 08/20/16 11:00 66 30 58/41 94 General appearance: other (Ventilated and sedated, agitated) Eyes: nonicteric ENT: oropharynx dry, other (ET tube in place, CXR confirmed tip of ET at 1.7 cm above erickson) Neck: supple Effort: other (Ventilated) Auscultation: bilateral: diminished breath sounds, rhonchi (bilateral mild rhonchi) Cardiovascular: other (Paced rhythm at a rate of 60 beats er minute) Integumentary: other (Pale) Extremities: no cyanosis, no edema, cool Musculoskeletal: no deformities unable to assess due to mental status other (Unable to assess due to mental status and sedation) Firm distended abdomen. Firmness most prominent to RUQ. No ecchymosis. Results - Laboratory Findings CBC and BMP: 08/20/16 10:40 08/20/16 10:40 ABG ABG pH 7.30 pH Units (7.32-7.45) L 08/20/16 10:09 ABG pCO2 26 mmHg (35-45) L 08/20/16 10:09 ABG pO2 238 mmHg (85-104) H 08/20/16 10:09 ABG O2 Saturation 100 % (95-98) H 08/20/16 10:09 Abnormal lab findings: Abnormal lab results WBC 15.5 K/mcL (4.3-11.1) H 08/20/16 10:40 MPV 9.3 fL (9.4-12.4) L 08/20/16 10:40 Band Neutrophils % 12.0 % (0-4) H 08/20/16 10:40 Metamyelocytes % 2.0 % (0) H 08/20/16 10:40 Neutrophils # 13.6 K/mcL (1.6-8.9) H 08/20/16 10:40 ABG pH 7.30 pH Units (7.32-7.45) L 08/20/16 10:09 ABG pCO2 26 mmHg (35-45) L 08/20/16 10:09 ABG pO2 238 mmHg (85-104) H 08/20/16 10:09 ABG HCO3 12.8 mEQ/L (21-27) L 08/20/16 10:09 ABG Total CO2 13.6 mEq/L (20-26) L 08/20/16 10:09 ABG O2 Saturation 100 % (95-98) H 08/20/16 10:09 ABG Base Excess -11.9 mEq/L (-2.0 to 3.0) L 08/20/16 10:09 Sodium 134 mEq/L (136-145) L 08/20/16 10:40 Potassium 3.2 mEq/L (3.5-4.5) L 08/20/16 10:40 Carbon Dioxide 16 mEq/L (19-29) L 08/20/16 10:40 BUN 36 mg/dL (8-26) H 08/20/16 10:40 Creatinine 1.76 mg/dL (0.72-1.25) H 08/20/16 10:40 Est GFR ( Amer) 45 (> 60) L 08/20/16 10:40 Est GFR (Non-Af Amer) 37 (> 60) L 08/20/16 10:40 Lactic Acid 11.9 mmol/L (0.5-2.2) H* 08/20/16 10:40 Magnesium 3.8 mg/dL (1.6-2.6) H 08/20/16 10:40 Total Bilirubin 1.4 mg/dL (0.2-1.2) H 08/20/16 10:40 AST 1699 Units/L (5-34) H 08/20/16 10:40 ALT 1725 Units/L (0-55) H 08/20/16 10:40 Troponin I 0.21 ng/mL (0-0.03) H* 08/20/16 10:40 Serum Total Protein 5.1 g/dL (6.0-8.3) L D 08/20/16 10:40 Albumin 2.7 g/dL (3.5-5.0) L D 08/20/16 10:40 - Diagnostic Findings Chest x-ray: report reviewed, image reviewed Pulmonary Procedures - Arterial Line Consent obtained: verbal consent (, POA, gave verbal consent) Time out performed: Yes Size (Gauge): 20 Technique used: guide wire technique Post-Procedure: line sutured into place, dry sterile dressing placed Patient tolerated procedure: well, no complications Complications: none Site: right, radial <Saadlla,Haval M - Last Filed: 08/20/16 16:49> Date of Encounter: 08/20/16 History of Present Illness HPI: Mr. Rodriguez is a 85 year old male All Systems: A 10-system review of systems was performed and is negative for pertinent findings except as documented above in the HPI. Physical Examination Vital Signs: Vital Signs, Last 4 Hours Temp Pulse Resp BP Pulse Ox 08/20/16 16:00 60 16 71/38 97 08/20/16 15:36 18 76/39 97 08/20/16 15:00 98.2 F 60 18 73/38 97 08/20/16 14:00 60 25 72/41 96 08/20/16 13:00 60 17 66/44 96 Results - Laboratory Findings CBC and BMP: 08/20/16 10:40 08/20/16 10:40 ABG ABG pH 7.30 pH Units (7.32-7.45) L 08/20/16 10:09 ABG pCO2 26 mmHg (35-45) L 08/20/16 10:09 ABG pO2 238 mmHg (85-104) H 08/20/16 10:09 ABG O2 Saturation 100 % (95-98) H 08/20/16 10:09 Abnormal lab findings: Abnormal lab results WBC 15.5 K/mcL (4.3-11.1) H 08/20/16 10:40 MPV 9.3 fL (9.4-12.4) L 08/20/16 10:40 Band Neutrophils % 12.0 % (0-4) H 08/20/16 10:40 Metamyelocytes % 2.0 % (0) H 08/20/16 10:40 Neutrophils # 13.6 K/mcL (1.6-8.9) H 08/20/16 10:40 ABG pH 7.30 pH Units (7.32-7.45) L 08/20/16 10:09 ABG pCO2 26 mmHg (35-45) L 08/20/16 10:09 ABG pO2 238 mmHg (85-104) H 08/20/16 10:09 ABG HCO3 12.8 mEQ/L (21-27) L 08/20/16 10:09 ABG Total CO2 13.6 mEq/L (20-26) L 08/20/16 10:09 ABG O2 Saturation 100 % (95-98) H 08/20/16 10:09 ABG Base Excess -11.9 mEq/L (-2.0 to 3.0) L 08/20/16 10:09 Sodium 134 mEq/L (136-145) L 08/20/16 10:40 Potassium 3.2 mEq/L (3.5-4.5) L 08/20/16 10:40 Carbon Dioxide 16 mEq/L (19-29) L 08/20/16 10:40 BUN 36 mg/dL (8-26) H 08/20/16 10:40 Creatinine 1.76 mg/dL (0.72-1.25) H 08/20/16 10:40 Est GFR ( Amer) 45 (> 60) L 08/20/16 10:40 Est GFR (Non-Af Amer) 37 (> 60) L 08/20/16 10:40 Lactic Acid 11.9 mmol/L (0.5-2.2) H* 08/20/16 10:40 Magnesium 3.8 mg/dL (1.6-2.6) H 08/20/16 10:40 Total Bilirubin 1.4 mg/dL (0.2-1.2) H 08/20/16 10:40 AST 1699 Units/L (5-34) H 08/20/16 10:40 ALT 1725 Units/L (0-55) H 08/20/16 10:40 Troponin I 0.21 ng/mL (0-0.03) H* 08/20/16 10:40 Serum Total Protein 5.1 g/dL (6.0-8.3) L D 08/20/16 10:40 Albumin 2.7 g/dL (3.5-5.0) L D 08/20/16 10:40 - Attending Attestation I examined this patient and my medical decision-making was reviewed with the MARINE ARCHITECT/PA/Advanced Practice Nurse/Resident Physician. I agree with the documented findings, disposition and treatment plan as described except to the extent set forth below. Patient seen and examined. Labs, radiology, chart personally reviewed. Agree with resident's history and physical, assessment, plan with following comments: TANK COOPER: Patient when arrived to ICU he was responding to stimuli, Pulmonary: Acceptable oxygenation and ventilation and continue vent support repeated ABG with some evidence of metabolic acidosis. Cardiovascular: Patient with septic shock and very unstable with adding vasopressors from the Levophed and added vasopressin as well as epinephrine and continued to be in severe shock. Prognosis is very poor GI: Nutrition per dietary and GI prophylaxis per routine patient has distended abdomen and possibly that is the source of his shock, unfortunately due to his overall condition very unstable, unable to do CT abdomen. There is evidence of shock liver as well Heme: DVT prophylaxis per routine ID: Continue antibiotics and plan to de-escalation of antibiotics coverage was broadened Renal; urine out put and renal funtion reviewed and acute kidney injury from the shock. Lactic acidosis which is extremely elevated and indicate poor prognosis with high mortality Endorcine: blood glucose is monitored Lines: all lines checked and no evidence of infections Skin: skin care to prevent pressure ulcers per nursing routine care Overall prognosis is very poor and I do not expect this patient will survive. Family is aware. I spent min of Critical Care time with this patient. It involved decision making of high complexity to assess, manipulate, and support vital organ system failure and/or to prevent further life threatening deterioration of the patient' s condition. The time involved in the performance of separately reportable procedures was not counted toward critical care time.
[2016-08-20] MEDS ORDERED: Dextrose Gel 15 GM PO PRN ×2 (15:08)
[2016-08-20] MEDS ORDERED: *HR* Dextrose 50 % in Water (Syg) 50 ML SYRINGE IVP PRN (15:08)
[2016-08-20] MEDS ORDERED: D5% in Water 1,000 ML IVC PRN (15:08)
--- NOTE | 2016-08-20 15:11 | Electrocardiograph Report ---
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
[2016-08-20] MEDS ORDERED: Piperacillin/Tazobactam 3.375 GM in D5% in Water (Mini-Bag+) 100 ML IVPB SCH (16:00)
[2016-08-20] MEDS: Lacri-Lube 3.5 GM TUBE BOTH EYES SCH ×3 (19:11→23:27)
[2016-08-20] MEDS: Chlorhexidine Rinse 15 ML MOUTHWASH MM SCH (19:25)
[2016-08-20] MEDS ORDERED: Norepinephrine 16 MG in D5% in Water 250 ML IVC SCH (19:48)
[2016-08-20] MEDS: Insulin LISPRO 300 UNITS/3 ML VIAL SQ SCH ×2 (20:03→23:27)
[2016-08-21] MEDS: FentaNYL (PF) 1,000 MCG in 0.9 % Sodium Chloride 80 ML IVC SCH ×2 (01:29→15:43)
[2016-08-21 03:54] LABS: Basophils % 0.1 %; Hematocrit 37.4 % (37.5-50.1); Hemoglobin 12.6 g/dL (12.9-16.9); INR 2.3; Immature Granulocytes % 0.4 % (0-4); Lymphocytes # 0.6 K/mcL (0.6-4.6); Lymphocytes % 5.1 %; Mean Corpuscular HGB Conc 33.7 g/dL (31.6-35.5); Mean Corpuscular Hemoglobin 33.1 pg (28.0-33.3); Mean Corpuscular Volume 98.2 fL (83.0-100.0); Mean Platelet Volume 10.7 fL (9.4-12.4); Monocytes % 8.9 %; Neutrophils # 9.8 K/mcL (1.6-8.9); Platelet Count 136 K/mcL (140-400); Prothrombin Time 25.4 Seconds (9.4-12.1); Red Blood Count 3.81 M/mcL (4.19-5.50); Red Cell Distribution Width 13.8 % (11.5-14.5); Segmented Neutrophils % 85.5 %
[2016-08-21 04:06] LABS: Alanine Aminotransferase 6578 Units/L (0-55); Albumin 2.1 g/dL (3.5-5.0); Albumin/Globulin Ratio 1.1 (1.1-2.2); Alkaline Phosphatase 117 Units/L (38-126); Aspartate Amino Transferase > 4202 Units/L (5-34); BUN/Creatinine Ratio 16 (6-26); Blood Urea Nitrogen 38 mg/dL (8-26); Calcium 7.7 mg/dL (8.6-10.8); Chloride 106 mEq/L (98-109); Glucose 91 mg/dL (70-99); Magnesium 3.2 mg/dL (1.6-2.6); Osmolality,Calculated 273 (280-300); Phosphorous 5.6 mg/dL (2.3-4.7); Potassium 5.1 mEq/L (3.5-4.5); Sodium 127 mEq/L (136-145); Total Protein 4.1 g/dL (6.0-8.3); eGFR For African Americans 32 (> 60); eGFR For Non-African Americans 27 (> 60)
[2016-08-21 04:08] LABS: Carbon Dioxide 9 mEq/L (19-29)
[2016-08-21] MEDS: Norepinephrine 16 MG in D5% in Water 500 ML IVC SCH (04:12)
[2016-08-21] MEDS: Lacri-Lube 3.5 GM TUBE BOTH EYES SCH ×5 (04:13→21:20)
[2016-08-21 04:17] LABS: Platelet Estimate Normal (Normal)
[2016-08-21] MEDS ORDERED: Calcium Gluconate 1,000 MG in D5% in Water 100 ML IVPB ONE ×2 (04:20→04:30)
[2016-08-21] MEDS: Piperacillin/Tazobactam 3.375 GM in D5% in Water (Mini-Bag+) 100 ML IVPB SCH ×3 (04:29→15:45)
[2016-08-21 04:35] LABS: ABG Base Excess -16.6 mEq/L (-2.0 to 3.0); ABG HCO3 9.4 mEQ/L (21-27); ABG Oxygen Saturation 96 % (95-98); ABG PCO2 23 mmHg (35-45); ABG PH 7.22 pH Units (7.32-7.45); ABG PO2 98 mmHg (85-104); ABG TCO2 10.1 mEq/L (20-26)
[2016-08-21 04:36] LABS: Blood Gas FiO2 50 %
[2016-08-21] MEDS ORDERED: Vancomycin 1,000 MG in D5% in Water 250 ML IVPB SCH (05:00)
[2016-08-21] MEDS: Hydrocortisone Sodium Succ 100 MG/2 ML VIAL IVP SCH ×4 (05:09→23:10)
[2016-08-21] MEDS: Insulin LISPRO 300 UNITS/3 ML VIAL SQ SCH ×3 (05:10→17:56)
[2016-08-21] MEDS ORDERED: Sodium Bicarbonate 100 MEQ in D5% in Water 1,000 ML IVC SCH (06:15)
[2016-08-21] MEDS: Vasopressin 40 UNIT in D5% in Water 100 ML IV SCH (06:28)
--- NOTE | 2016-08-21 07:41 | Pulmonology Progress Note ---
<Larisa Cowart - Last Filed: 08/21/16 11:15> Date of Encounter: 08/21/16 Time of Encounter: 07:38 Assessment and Plan (1) Septic shock Current Visit: Yes Status: Acute Patient in ICU ventilated and sedated with hypotension requiring levaophed, epinephrine, and vasopressin Lactate down to 6.0 from 13.7 on admission pH 7.22, pCO2 23, pO2 98, HCO3 9 Blood cultures x 2 08/19/16, preliminary report on 08/20/16 no growth However, patient has not been stable enough to tolerate transport to CT scanner Also, it is likely that findings on CT scan will not change booth attendant as patient would not be an appropriate surgical candidate should a surgical abdomen be encountered 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 Patient opens eyes and squeezes hands upon command. Pulm: Ventilated and Sedated. VT 500, RR 12, PEEP 5, FIO2 50%, saturating 91%. Lung sounds are clear. Cardiac: Hypotensive and currently on Levophed, Epinephrine, and Vasopressin. Arterial line in place BP 80/40. Chronic afib with pacemaker. Elevated troponin of 0.35 in the setting of MINH due to septic shock. Troponin is trending up from 0.20 yesterday. I suspect this is secondary to MINH and demand ischemia. GI/Fluids/Electrolytes/Hydration: OG tube in place with 2.6L of drainage in last 24 hours, Patient has received approximately 7.5L of IV fluid. Low bicarb of 9.0 this morning-we are replacing with 2 amps bicarb in NS. Hyperkalemia 5.1 treated this morning with 2g Calcium gluconate and 1 am bicarb. Hypocalcemia , we will repeat ionized Calcium and replace if low. Hypermagnesemia and hyperphosphatemia. Corrected anion gap today 18, yesterday corrected anion gap was 18. Renal: MINH with Creatinine up to 2.33 from 1.76, No UOP in last 24 hours. Nephrology consulted. Considering Mohini. ID: UA demonstrated moderate bacteria and blood in urine, uncertain if there is an additional source for the sepsis. Patient is on Zosyn and renaly dosed Vancomycin. Heme/Onc: Thrombocytopenia of 136 today, platelets down from 151 yesterday. Leukocytosis with WBC 11.5, down from 16.9 yesterday. Broad spectrum antibiotics are being administered. INR 2.3 today up from 1.2 yesterday secondary to acute liver injury. Endocrine: Continue Accuchecks [id number]. Continue stress dose steroids Hydrocortisone 50mg IV Q6. Skin: New deep tissue injury to bilateral sacral area with pink, beefy skin. Skin precautions in place per nursing protocol. Lines: Right femoral line, Right radial arterial line, ET tube, French, OG tube (2) MINH (acute kidney injury) Current Visit: No Status: Acute (3) Shock liver Current Visit: Yes Status: Acute (4) Lactic acidosis Current Visit: Yes Status: Acute (5) Thrombocytopenia Current Visit: Yes Status: Acute (6) UTI (urinary tract infection) Current Visit: Yes Status: Acute Qualifiers: Urinary tract infection type: site unspecified (7) Acute respiratory failure Current Visit: Yes Status: Acute (8) Elevated troponin Current Visit: No Status: Acute (9) Chronic atrial fibrillation Current Visit: No Status: Chronic (10) Hyponatremia Current Visit: No Status: Acute (11) Hypothyroidism Current Visit: No Status: Chronic Qualifiers: Hypothyroidism type: postablative Qualified Code(s): E89.0 - Postprocedural hypothyroidism (12) Hyperkalemia, diminished renal excretion Current Visit: Yes Status: Acute (13) Hyperphosphatemia Current Visit: Yes Status: Acute (14) Hypermagnesemia Current Visit: Yes Status: Acute (15) DVT prophylaxis Current Visit: Yes Status: Acute Subjective Principal diagnosis: septic shock, MINH, shock liver, thrombocytopenia Interval history: Patient Intubated, Ventilated and Sedated. Therefore overnight events are provided by nurse. Overnight, patient's blood pressure was tenuous requiring three pressors for support. BP is currently 90s/50s. He is currently on Epinephrine 30mL/hr, Levaphed 15mL/hr, and Vasopressin 4.5 mL/hr for pressure support. Patient did have appearance of skin mottling last night, which has since resolved this morning. Also, patient developed a pressure ulcer last night. His hyperkalemia of 5.1 was treated with 2g of Calcium Gluconate and 50 meq Bicarb. Critical Bicarb of 9.0 was obtained with chemistry this morning and is currently being replaced with Bicarb. Patient's renal function and liver function are worsening. Objective PUL Vital signs: Last Vital Signs Temp 98.7 F 08/21/16 03:00 Pulse 68 08/21/16 05:48 Resp 23 08/21/16 07:20 BP 98/50 08/21/16 07:20 Pulse Ox 92 08/21/16 07:20 General appearance: other (Patient Intubated, Ventilated and Sedated. Appears comfortable at this time. ) ENT: oropharynx dry Neck: supple Effort: other (Breathing over the ventilator. Vent settings: Vt 500, RR 12, PEEP 5) Auscultation: bilateral: clear Cardiovascular: regular rate and rhythm Gastrointestinal: normoactive bowel sounds, tender (Patient withdrawls upon palpation of abdomen), other (Distended and firm) Integumentary: other (Cool to touch. No mottling appreciated. Large area of red to joe skin covering bilateral sacrum. No ulcers appreciated. ) Extremities: no cyanosis, cool, edema (To dependent areas of bilateral hands) Musculoskeletal: no deformities unable to assess due to mental status other (Ventilated and sedated) Ventilator Settings Ventilator Settings: Ventilator Settings, Last 8 Hours Ventilator Mode VC+ Ventilator Mode VC+ Ventilator Mode VC+ Ventilator Mode VC+ Ventilator Mode VC+ Ventilator Mode A/C Ventilator Mode A/C Ventilator Mode A/C Ventilator Mode A/C Ventilator Mode A/C Ventilator Mode A/C Ventilator Mode A/C Ventilator Mode A/C Ventilator Tidal Volume 500 Setting Ventilator Tidal Volume 500 Setting Ventilator Tidal Volume 500 Setting Ventilator Tidal Volume 500 Setting Ventilator Tidal Volume 500 Setting Ventilator Tidal Volume 500 Setting Ventilator Tidal Volume 500 Setting Ventilator Tidal Volume 500 Setting Ventilator Tidal Volume 500 Setting Ventilator Tidal Volume 500 Setting Ventilator Tidal Volume 500 Setting Ventilator Tidal Volume 500 Setting Ventilator Tidal Volume 500 Setting Ventilator Respiratory Rate 12 Setting Ventilator Respiratory Rate 12 Setting Ventilator Respiratory Rate 12 Setting Ventilator Respiratory Rate 12 Setting Ventilator Respiratory Rate 12 Setting Ventilator Respiratory Rate 12 Setting Ventilator Respiratory Rate 12 Setting Ventilator Respiratory Rate 12 Setting Ventilator Respiratory Rate 12 Setting Ventilator Respiratory Rate 12 Setting Ventilator Respiratory Rate 12 Setting Ventilator Respiratory Rate 12 Setting Ventilator Respiratory Rate 12 Setting Actual Respiratory Rate 23 Actual Respiratory Rate 24 Actual Respiratory Rate 24 Actual Respiratory Rate 26 Actual Respiratory Rate 22 Actual Respiratory Rate 22 Actual Respiratory Rate 22 Actual Respiratory Rate 20 Actual Respiratory Rate 23 Actual Respiratory Rate 21 Actual Respiratory Rate 21 Actual Respiratory Rate 20 Positive End Expiratory 5 Pressure Positive End Expiratory 5 Pressure Positive End Expiratory 5 Pressure Positive End Expiratory 5 Pressure Positive End Expiratory 5 Pressure Positive End Expiratory 5 Pressure Positive End Expiratory 5 Pressure Positive End Expiratory 5 Pressure Positive End Expiratory 5 Pressure Positive End Expiratory 5 Pressure Positive End Expiratory 5 Pressure Positive End Expiratory 5 Pressure Positive End Expiratory 5 Pressure Peak Inspiratory Airway 21 Pressure Peak Inspiratory Airway 21 Pressure Peak Inspiratory Airway 22 Pressure Peak Inspiratory Airway 22 Pressure Peak Inspiratory Airway 22 Pressure Peak Inspiratory Airway 23 Pressure Peak Inspiratory Airway 23 Pressure Peak Inspiratory Airway 23 Pressure Peak Inspiratory Airway 22 Pressure Peak Inspiratory Airway 23 Pressure Peak Inspiratory Airway 23 Pressure Peak Inspiratory Airway 23 Pressure Results - Laboratory Findings CBC and BMP: 08/21/16 03:30 08/21/16 04:00 ABG ABG pH 7.22 pH Units (7.32-7.45) L 08/21/16 04:25 ABG pCO2 23 mmHg (35-45) L 08/21/16 04:25 ABG pO2 98 mmHg (85-104) 08/21/16 04:25 ABG O2 Saturation 96 % (95-98) 08/21/16 04:25 PT/INR, D-dimer PT 25.4 Seconds (9.4-12.1) H D 08/21/16 03:30 Abnormal lab findings: Abnormal lab results WBC 11.5 K/mcL (4.3-11.1) H 08/21/16 03:30 RBC 3.81 M/mcL (4.19-5.50) L 08/21/16 03:30 Hgb 12.6 g/dL (12.9-16.9) L 08/21/16 03:30 Hct 37.4 % (37.5-50.1) L 08/21/16 03:30 Plt Count 136 K/mcL (140-400) L 08/21/16 03:30 Band Neutrophils % 12.0 % (0-4) H 08/20/16 10:40 Metamyelocytes % 2.0 % (0) H 08/20/16 10:40 Neutrophils # 9.8 K/mcL (1.6-8.9) H 08/21/16 03:30 PT 25.4 Seconds (9.4-12.1) H D 08/21/16 03:30 ABG pH 7.22 pH Units (7.32-7.45) L 08/21/16 04:25 ABG pCO2 23 mmHg (35-45) L 08/21/16 04:25 ABG HCO3 9.4 mEQ/L (21-27) L 08/21/16 04:25 ABG Total CO2 10.1 mEq/L (20-26) L 08/21/16 04:25 ABG Base Excess -16.6 mEq/L (-2.0 to 3.0) L 08/21/16 04:25 Sodium 127 mEq/L (136-145) L D 08/21/16 04:00 Potassium 5.1 mEq/L (3.5-4.5) H D 08/21/16 04:00 Carbon Dioxide 9 mEq/L (19-29) L* 08/21/16 04:00 BUN 38 mg/dL (8-26) H 08/21/16 04:00 Creatinine 2.33 mg/dL (0.72-1.25) H 08/21/16 04:00 Est GFR ( Amer) 32 (> 60) L 08/21/16 04:00 Est GFR (Non-Af Amer) 27 (> 60) L 08/21/16 04:00 Calculated Osmolality 273 (280-300) L 08/21/16 04:00 Lactic Acid 6.0 mmol/L (0.5-2.2) H* 08/21/16 04:00 Calcium 7.7 mg/dL (8.6-10.8) L D 08/21/16 04:00 Phosphorus 5.6 mg/dL (2.3-4.7) H 08/21/16 04:00 Magnesium 3.2 mg/dL (1.6-2.6) H 08/21/16 04:00 AST > 4202 Units/L (5-34) H 08/21/16 04:00 ALT 6578 Units/L (0-55) H 08/21/16 04:00 Troponin I 0.35 ng/mL (0-0.03) H* 08/20/16 23:15 Serum Total Protein 4.1 g/dL (6.0-8.3) L 08/21/16 04:00 Albumin 2.1 g/dL (3.5-5.0) L D 08/21/16 04:00 Globulin 2.0 g/dL (2.4-3.5) L 08/21/16 04:00 - Diagnostic Findings Additional studies: Liver Ultrasound 08/20/16 18:00 IMPRESSION: Cholelithiasis. No cholecystitis. Echogenicity of the liver is at the upper limits normal, either technical or due to mild fatty infiltration D/ / Han Ramirez MD / Han Ramirez MD Interpreting Provider: Han Ramirez MD - Clinical Findings Intake & Output: Intake & Output 08/20/16 08/20/16 08/21/16 15:59 23:59 07:59 Intake Total 3355 / 3355 2658 / 2658 710 / 710 Output Total 1999 / 1999 650 / 650 0 / 0 Balance 1355 / 1355 2007 710 / 710 Weight 68.4 kg 73.2 kg Pulmonary Procedures - Arterial Line Size (Gauge): 20 Consult Discharge Plan - Plan Referrals: NO,PCP [Primary Care Provider] - <Rich Andrew - Last Filed: 08/21/16 16:24> Date of Encounter: 08/21/16 Objective PUL Vital signs: Last Vital Signs Temp 98.6 F 08/21/16 16:07 Pulse 65 08/21/16 16:00 Resp 15 08/21/16 16:00 BP 83/31 08/21/16 16:00 Pulse Ox 97 08/21/16 16:00 Ventilator Settings Ventilator Settings: Ventilator Settings, Last 8 Hours Ventilator Mode VC+ Ventilator Mode VC+ Ventilator Mode VC+ Ventilator Mode VC+ Ventilator Mode VC+ Ventilator Mode VC+ Ventilator Mode VC+ Ventilator Mode VC+ Ventilator Mode VC+ Ventilator Mode VC+ Ventilator Mode VC+ Ventilator Mode VC+ Ventilator Tidal Volume 500 Setting Ventilator Tidal Volume 500 Setting Ventilator Tidal Volume 500 Setting Ventilator Tidal Volume 500 Setting Ventilator Tidal Volume 500 Setting Ventilator Tidal Volume 500 Setting Ventilator Tidal Volume 500 Setting Ventilator Tidal Volume 500 Setting Ventilator Tidal Volume 500 Setting Ventilator Tidal Volume 500 Setting Ventilator Tidal Volume 500 Setting Ventilator Tidal Volume 500 Setting Ventilator Respiratory Rate 12 Setting Ventilator Respiratory Rate 12 Setting Ventilator Respiratory Rate 12 Setting Ventilator Respiratory Rate 12 Setting Ventilator Respiratory Rate 12 Setting Ventilator Respiratory Rate 12 Setting Ventilator Respiratory Rate 12 Setting Ventilator Respiratory Rate 12 Setting Ventilator Respiratory Rate 12 Setting Ventilator Respiratory Rate 12 Setting Ventilator Respiratory Rate 12 Setting Ventilator Respiratory Rate 12 Setting Actual Respiratory Rate 14 Actual Respiratory Rate 14 Actual Respiratory Rate 16 Actual Respiratory Rate 16 Actual Respiratory Rate 21 Actual Respiratory Rate 20 Actual Respiratory Rate 21 Actual Respiratory Rate 21 Actual Respiratory Rate 22 Actual Respiratory Rate 24 Actual Respiratory Rate 25 Actual Respiratory Rate 24 Positive End Expiratory 8 Pressure Positive End Expiratory 8 Pressure Positive End Expiratory 8 Pressure Positive End Expiratory 8 Pressure Positive End Expiratory 8 Pressure Positive End Expiratory 8 Pressure Positive End Expiratory 8 Pressure Positive End Expiratory 8 Pressure Positive End Expiratory 8 Pressure Positive End Expiratory 5 Pressure Positive End Expiratory 5 Pressure Positive End Expiratory 5 Pressure Peak Inspiratory Airway 15 Pressure Peak Inspiratory Airway 15 Pressure Peak Inspiratory Airway 23 Pressure Peak Inspiratory Airway 23 Pressure Peak Inspiratory Airway 23 Pressure Peak Inspiratory Airway 23 Pressure Peak Inspiratory Airway 24 Pressure Peak Inspiratory Airway 24 Pressure Peak Inspiratory Airway 22 Pressure Peak Inspiratory Airway 25 Pressure Peak Inspiratory Airway 24 Pressure Peak Inspiratory Airway 21 Pressure Results - Laboratory Findings CBC and BMP: 08/21/16 03:30 08/21/16 04:00 ABG ABG pH 7.22 pH Units (7.32-7.45) L 08/21/16 04:25 ABG pCO2 23 mmHg (35-45) L 08/21/16 04:25 ABG pO2 98 mmHg (85-104) 08/21/16 04:25 ABG O2 Saturation 96 % (95-98) 08/21/16 04:25 PT/INR, D-dimer PT 25.4 Seconds (9.4-12.1) H D 08/21/16 03:30 Abnormal lab findings: Abnormal lab results WBC 11.5 K/mcL (4.3-11.1) H 08/21/16 03:30 RBC 3.81 M/mcL (4.19-5.50) L 08/21/16 03:30 Hgb 12.6 g/dL (12.9-16.9) L 08/21/16 03:30 Hct 37.4 % (37.5-50.1) L 08/21/16 03:30 Plt Count 136 K/mcL (140-400) L 08/21/16 03:30 Band Neutrophils % 12.0 % (0-4) H 08/20/16 10:40 Metamyelocytes % 2.0 % (0) H 08/20/16 10:40 Neutrophils # 9.8 K/mcL (1.6-8.9) H 08/21/16 03:30 PT 25.4 Seconds (9.4-12.1) H D 08/21/16 03:30 ABG pH 7.22 pH Units (7.32-7.45) L 08/21/16 04:25 ABG pCO2 23 mmHg (35-45) L 08/21/16 04:25 ABG HCO3 9.4 mEQ/L (21-27) L 08/21/16 04:25 ABG Total CO2 10.1 mEq/L (20-26) L 08/21/16 04:25 ABG Base Excess -16.6 mEq/L (-2.0 to 3.0) L 08/21/16 04:25 Sodium 127 mEq/L (136-145) L D 08/21/16 04:00 Potassium 5.1 mEq/L (3.5-4.5) H D 08/21/16 04:00 Carbon Dioxide 9 mEq/L (19-29) L* 08/21/16 04:00 BUN 38 mg/dL (8-26) H 08/21/16 04:00 Creatinine 2.33 mg/dL (0.72-1.25) H 08/21/16 04:00 Est GFR ( Amer) 32 (> 60) L 08/21/16 04:00 Est GFR (Non-Af Amer) 27 (> 60) L 08/21/16 04:00 Calculated Osmolality 273 (280-300) L 08/21/16 04:00 Lactic Acid 6.0 mmol/L (0.5-2.2) H* 08/21/16 04:00 Calcium 7.7 mg/dL (8.6-10.8) L D 08/21/16 04:00 Ionized Calcium 1.08 mmol/L (1.15-1.35) L 08/21/16 08:45 Phosphorus 5.6 mg/dL (2.3-4.7) H 08/21/16 04:00 Magnesium 3.2 mg/dL (1.6-2.6) H 08/21/16 04:00 AST > 4202 Units/L (5-34) H 08/21/16 04:00 ALT 6578 Units/L (0-55) H 08/21/16 04:00 Troponin I 0.35 ng/mL (0-0.03) H* 08/20/16 23:15 Serum Total Protein 4.1 g/dL (6.0-8.3) L 08/21/16 04:00 Albumin 2.1 g/dL (3.5-5.0) L D 08/21/16 04:00 Globulin 2.0 g/dL (2.4-3.5) L 08/21/16 04:00 - Clinical Findings Intake & Output: Intake & Output 08/21/16 08/21/16 08/21/16 07:59 15:59 23:59 Intake Total 960 / 960 1555 / 1555 Output Total 0 / 0 0 / 0 0 / 0 Balance 960 / 960 1555 / 1555 0 / 0 - Attending Attestation I examined this patient and my medical decision-making was reviewed with the CHECKER/STOCKER/PA/Advanced Practice Nurse/Resident Physician. I agree with the documented findings, disposition and treatment plan as described except to the extent set forth below. Patient seen and examined. Labs, radiology, chart personally reviewed. 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 He is not not stable for a spontaneous breathing trial. Cardiovascular: Patient critically ill and requiring multiple vasopressors. Discussed with the at the bedside now waiting for his kids to arrive. GI: Nutrition per dietary and GI prophylaxis per routine. Due to multiple pressors will keep patient's nothing by mouth. Patient has shock liver. Heme: DVT prophylaxis per routine. Coagulopathy secondary to septic shock and shock liver. ID: Continue antibiotics and plan to de-escalation Renal; urine out put and renal funtion reviewed. Nephrology to discuss with family regarding renal replacement therapy. Endorcine: blood glucose is monitored Lines: all lines checked and no evidence of infections Skin: skin care to prevent pressure ulcers per nursing routine care Overall prognosis is poor I spent 40 min of Critical Care time with this patient. It involved decision making of high complexity to assess, manipulate, and support vital organ system failure and/or to prevent further life threatening deterioration of the patient' s condition. The time involved in the performance of separately reportable procedures was not counted toward critical care time.
[2016-08-21] MEDS: Chlorhexidine Rinse 15 ML MOUTHWASH MM SCH ×2 (08:27→21:20)
[2016-08-21] MEDS: Pantoprazole 40 MG VIAL IVPB SCH (08:27)
[2016-08-21] MEDS: EPINEPHrine 5 MG in D5% in Water 250 ML IVC SCH ×2 (09:18→17:48)
[2016-08-21] MEDS: Dexmedetomidine HCl 400 MCG/100 ML MLS IVC SCH (13:20)
[2016-08-21] MEDS: Thiamine (B-1) 200 MG in D5% in Water 50 ML IVPB SCH ×2 (13:21→23:09)
--- NOTE | 2016-08-21 14:11 | Palliative - Consult Note ---
Date of Encounter: 08/21/16 Time of Encounter: 10:15 - Assessment and Plan (1) Counseling regarding advanced care planning and goals of care Current Visit: Yes Status: Acute Assessment and plan: Discussed goals of care with spouse. There has been prior conversations regarding end-of-life. Mrs. Rodriguez plans to follow his prior known intent. Awaiting on arrival of children from out of state. Will likely withdrawal care after their arrival. (2) Compression fracture of T12 vertebra Current Visit: No Status: Chronic Qualifiers: Encounter type: sequela Qualified Code(s): M48.54XS - Collapsed vertebra, not elsewhere classified, thoracic region, sequela of fracture (3) Dyspnea Current Visit: No Status: Acute Assessment and plan: Patient is currently intubated/sedated, on mechanical ventilation. Sedation management per ICU guidelines. 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 (5) Shock liver Current Visit: Yes Status: Acute Palliative-CN HPI - Data of Consult Patient: new to practice Consult date: 08/21/16 Requesting Physician: Toby Borrego MD Primary Care Provider: PCP NO - Consult Narrative Palliative Care/Comfort Measures: Palliative care Reason for consult: Goals of care History of present illness: Mr. Rodriguez is a 85 year old male patient with a history of CAD, hypertension, chronic A. fib status post pacemaker placement. He presented to the emergency department at [facility] for difficulty breathing and altered mental status. Patient was found to be severely acidotic and obtunded. He was transferred to [facility] for ICU level care. Mr. Rodriguez was intubated/on mechanical ventilation. He was hypotensive and tachycardic, requiring the use of vasopressors to maintain blood pressure. Laboratory values indicate septic shock with a possible source of urinary tract. The palliative care team was consulted to assist with goals of care planning. According to his spouse, Mr. Rodriguez had been in a deterioration since this past June. He suffered a compression fracture in January 2016, and a second one in June 2016. Since then, he has been in "terrific pain". He has severe osteoporosis, but was not a candidate for bisphosphonate therapy. 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 His reports a 10 pound weight loss in the past month despite providing Enlive nutritional supplement 2 times per day. She also states he has been saying "goodbye" prior to bedtime for the past 2 months. He does have advanced directives in place. CC: Toby Borrego MD Past Med Surg Social Fam HX - Past Medical History Source: old records reviewed, obtained from family Medical history: arthritis, atrial fibrillation, coronary artery disease, hyperlipidemia, hypertension, peripheral artery disease, thyroid disease, other (Pacemaker) Psychiatric history: anxiety, depression - Past Surgical History Surgical History: appendectomy, coronary bypass (CABG), other, pacemaker - Social History Smoking Status: Former smoker Smokeless Tobacco Status: No Alcohol use: none Drug use: none - Family History Father Living Status: Hx Family Cardiac Disorders: Yes Brother Hx Family Cardiac Disorders: Yes Mother Living Status: Hx Family Cardiac Disorders: Yes Medications and Allergies Atorvastatin [Lipitor] 80 mg PO HS 10/26/15 [History] Ezetimibe [Zetia] 10 mg PO DAILY 10/26/15 [History] Docusate [Colace] 100 mg PO BID PRN 11/13/15 [History] Buspirone HCl [Buspar] 5 mg PO TID 06/16/16 [History] HYDROcodone/Acet 5/325 mg [[place] 5-325 mg] 1 tab PO Q6H PRN 06/16/16 [History] Melatonin 3 mg PO HS tablet 06/18/16 [Rx] amLODIPine [Norvasc] 5 mg PO DAILY tablet 06/18/16 [Rx] Levothyroxine [Synthroid] 150 mcg PO DAILY 06/25/16 [History] Alendronate Sodium [Fosamax] 35 mg PO QWEEK 07/12/16 [History] Apixaban [Eliquis] 2.5 mg PO BID 07/12/16 [History] Calcium Citrate/Vitamin D3 [Calcium Citrate-Vit D3 Tablet] 1 tab PO DAILY [History] Telmisartan [Micardis] 80 mg PO DAILY 07/12/16 [History] ALPRAZolam [Xanax 0.25 MG Tablet] 0.25 mg PO TID PRN 08/20/16 [History] Multivitamin [Multi-Day Vitamins] 1 tab PO DAILY 08/20/16 [History] Naloxegol Oxalate [Movantik] 25 mg PO DAILY 08/20/16 [History] Polyethylene Glycol 3350 [MiraLAX bowel prep] 255 gm PO PRN PRN 08/20/16 [ History] Ranitidine HCl [Zantac] 150 mg PO BID 08/20/16 [History] Venlafaxine [Effexor] 37.5 mg PO DAILY 08/20/16 [History] Vit A/Vit C/Vit E/Zinc/Copper [Preservision Areds Tablet] 1 tab PO DAILY [History] Allergies lactose Allergy (Verified 06/16/16 19:56) Vomiting ROS unobtainable: due to endotracheal tube, due to mental status Palliative Care-Exam - Constitutional Vitals: Temp Pulse Resp BP Pulse Ox 99.1 F 70 19 97/36 95 08/21/16 12:00 08/21/16 13:00 08/21/16 13:07 08/21/16 13:07 08/21/16 13:07 Exam: 85 year old male appearing acutely ill, some response (opens eyes). He is intubated/sedated, and on mechanical ventilation. He requires vasopressor support to manage his hypotension. - Head Head Exam: Present: atraumatic - Eye Eye exam: Present: EOMI - Respiratory Respiratory exam: Present: decreased breath sounds. Absent: accessory muscle use, respiratory distress Additional comments: intubated, sedated, on mechanical ventilation - Cardiovascular Cardiovascular exam: Present: irregular rhythm, RRR Additional comments: cardiac rhythm atrial fibrillation/flutter, paced, sinus. - GI/Abdominal Exam GI/Abdominal exam: Present: soft. Absent: tenderness additional comments: OG tube intact - Rectal Rectal Exam: Present: deferred - Catheter Type: Urethral (French) (poor urine output) - Extremities Exam Extremities exam: Absent: pedal edema - Expanded Upper Extremities Exam Hand wrist exam: Present: swelling - Neurological Exam Additional comments: opens eyes occasionally, sedated - Skin Skin exam: Present: dry, warm Additional comments: mottling noted to bilateral knees Internal Medicine - CN: Reslt - Labs CBC & Chem 7: 08/21/16 03:30 08/21/16 04:00 Labs: Short CBC 08/21/16 Range/Units 03:30 WBC 11.5 H (4.3-11.1) K/mcL Hgb 12.6 L (12.9-16.9) g/dL Hct 37.4 L (37.5-50.1) % Plt Count 136 L (140-400) K/mcL Neutrophils # 9.8 H (1.6-8.9) K/mcL BMP 08/21/16 04:00 Sodium 127 L D Potassium 5.1 H D Chloride 106 Carbon Dioxide 9 L* BUN 38 H Creatinine 2.33 H Glucose 91 Calcium 7.7 L D Cardiac Enzymes 08/20/16 08/20/16 Range/Units 17:15 23:15 Troponin I 0.29 H* 0.35 H* (0-0.03) ng/mL Liver Function 08/21/16 Range/Units 04:00 Total Bilirubin 1.0 (0.2-1.2) mg/dL AST > 4202 H (5-34) Units/L ALT 6578 H (0-55) Units/L Alkaline Phosphatase 117 (38-126) Units/L Albumin 2.1 L D (3.5-5.0) g/dL - ABG Interpretation ABG results: ABG ABG pH 7.22 pH Units (7.32-7.45) L 08/21/16 04:25 ABG pCO2 23 mmHg (35-45) L 08/21/16 04:25 ABG pO2 98 mmHg (85-104) 08/21/16 04:25 ABG O2 Saturation 96 % (95-98) 08/21/16 04:25 PT/INR, D-dimer PT 25.4 Seconds (9.4-12.1) H D 08/21/16 03:30 - Impressions Impressions Liver Ultrasound 08/20/16 18:00 IMPRESSION: Cholelithiasis. No cholecystitis. Echogenicity of the liver is at the upper limits normal, either technical or due to mild fatty infiltration D/ / Han Ramirez MD / Han Ramirez MD Interpreting Provider: Han Ramirez MD Consult Discharge Plan - Plan Referrals: NO,PCP [Primary Care Provider] - Palliative Quality Palliative Quality: Screen for Code Status: Yes, Screen for Goals of Care: Yes, Screen for Pain: Yes, If Pain Regimen Started, Initiate Bowel Regimen: Yes, Screen for Nausea/Vomitting: Yes Code Status: 08/20/16 12:02 Resuscitation Status: Active [RES] Routine Comment: Resuscitation Status: DNR-Comfort Care-Arrest
[2016-08-21] MEDS: 0.9 % Sodium Chloride 1,000 ML IVC SCH (15:54)
--- NOTE | 2016-08-21 17:34 | Nephrology Consult Note ---
Date of Encounter: 08/21/16 Time of Encounter: 17:32 Assessment and Plan (1) MINH (acute kidney injury) Current Visit: No Status: Acute Patient with anuric MINH secondary to severe sepsis. I spoke with his , Sharon Rodriguez, regarding the need for renal replacement therapy. She inquired if it would "cure him". I informed her that dialysis would not "cure" his underylying condition, but would replace the function of the kidney until he recovers or passes away. She did not think this was consistent with his wishes for end of life care or with the families wishes. I informed her that if she or the family change their mind to let us know. I recommend medical management of his hyperkalemia and metabolic acidosis. (2) Hyperkalemia, diminished renal excretion Current Visit: Yes Status: Acute Mild hyperkalemia. Recommend medical management. This will likely worsen with her MINH. Family does not want dialysis at this time. (3) Lactic acidosis Current Visit: Yes Status: Acute Secondary to severe sepsis. Provide supplemental bicarbonate as needed. (4) Septic shock Current Visit: Yes Status: Acute Continue with current therapy. Managment per primary team. History of Present Illness - Reason for Consult Consult date: 08/21/16 Acute Kidney Injury - Chief Complaint Sepsis and MINH - History of Present Illness HPI from the electronic medical record and conversation with the primary team. Patient is intubated and sedated unable to provide a history. Patient in with altered mental status and found to have severe sepsis. Source is UTI vs GI. Past Med Surg Social Fam HX - Past Medical History Medical history: arthritis, atrial fibrillation, coronary artery disease, hyperlipidemia, hypertension, peripheral artery disease, thyroid disease, other (Pacemaker) Psychiatric history: anxiety, depression - Past Surgical History Surgical History: appendectomy, coronary bypass (CABG), other, pacemaker - Social History Smoking Status: Former smoker Smokeless Tobacco Status: No Alcohol use: none Drug use: none - Family History Father Living Status: Hx Family Cardiac Disorders: Yes Brother Hx Family Cardiac Disorders: Yes Mother Living Status: Hx Family Cardiac Disorders: Yes Medications and Allergies Atorvastatin [Lipitor] 80 mg PO HS 10/26/15 [History] Ezetimibe [Zetia] 10 mg PO DAILY 10/26/15 [History] Docusate [Colace] 100 mg PO BID PRN 11/13/15 [History] Buspirone HCl [Buspar] 5 mg PO TID 06/16/16 [History] HYDROcodone/Acet 5/325 mg [[place] 5-325 mg] 1 tab PO Q6H PRN 06/16/16 [History] Melatonin 3 mg PO HS tablet 06/18/16 [Rx] amLODIPine [Norvasc] 5 mg PO DAILY tablet 06/18/16 [Rx] Levothyroxine [Synthroid] 150 mcg PO DAILY 06/25/16 [History] Alendronate Sodium [Fosamax] 35 mg PO QWEEK 07/12/16 [History] Apixaban [Eliquis] 2.5 mg PO BID 07/12/16 [History] Calcium Citrate/Vitamin D3 [Calcium Citrate-Vit D3 Tablet] 1 tab PO DAILY [History] Telmisartan [Micardis] 80 mg PO DAILY 07/12/16 [History] ALPRAZolam [Xanax 0.25 MG Tablet] 0.25 mg PO TID PRN 08/20/16 [History] Multivitamin [Multi-Day Vitamins] 1 tab PO DAILY 08/20/16 [History] Naloxegol Oxalate [Movantik] 25 mg PO DAILY 08/20/16 [History] Polyethylene Glycol 3350 [MiraLAX bowel prep] 255 gm PO PRN PRN 08/20/16 [ History] Ranitidine HCl [Zantac] 150 mg PO BID 08/20/16 [History] Venlafaxine [Effexor] 37.5 mg PO DAILY 08/20/16 [History] Vit A/Vit C/Vit E/Zinc/Copper [Preservision Areds Tablet] 1 tab PO DAILY [History] Allergies lactose Allergy (Verified 06/16/16 19:56) Vomiting Review of Systems ROS unobtainable: due to endotracheal tube, due to mental status Exam - Vital Signs Vital signs: Initial Vital Signs Resp Pulse Ox 30 98 08/20/16 09:45 08/20/16 09:45 Vital Signs - Last 8 Hours Temp Pulse Resp BP Pulse Ox 08/21/16 16:07 98.6 F 08/21/16 16:00 98.6 F 65 15 83/31 97 08/21/16 15:53 15 90/30 96 08/21/16 15:00 68 16 102/56 95 08/21/16 14:00 68 16 102/56 95 08/21/16 13:07 19 97/36 95 08/21/16 13:00 70 20 104/59 95 08/21/16 12:00 99.1 F 70 21 98/61 92 08/21/16 11:23 21 99/35 91 08/21/16 11:00 60 22 98/35 94 08/21/16 10:00 71 24 105/40 94 08/21/16 09:56 26 108/44 88 Intake and Output 08/21/16 08/21/16 08/21/16 07:59 15:59 23:59 Intake Total 960 / 960 1555 / 1555 Output Total 0 / 0 0 / 0 0 / 0 Balance 960 / 960 1555 / 1555 0 / 0 Intake: IV Fluids 960 / 960 1555 / 1555 Vasostrict 40 UNIT In 102 / 102 Dextrose 5% 100 ML @ 0.03 UNIT/MIN 4.59 mls/hr IV .[id number] [facility] Rx#: [id number] PRECEDEX 400 mcg In 100 100 / 100 ml @ 0.2 MCG/KG/HR 3.42 mls/hr IVC .Q24H [facility] Rx#: [id number] EPINEPHrine 5 MG In 250 / 250 Dextrose 5% 250 ML @ 2 MCG/MIN 6.12 mls/hr IVC CONT [facility] Rx#:[id number] FentaNYL (PF) 1,000 MCG 100 / 100 100 / 100 In 0.9 % Sodium Chloride 80 ML @ 50 MCG/HR 5 mls/ hr IVC CONT [facility] Rx#: [id number] Sodium Bicarbonate 100 1100 / 1100 MEQ In Dextrose 5% 1,000 ML @ 150 mls/hr IVC . Q7H20M [facility] Rx#:[id number] Ascorbic Acid 1,500 mg In 206 / 206 103 / 103 0.9 % Sodium Chloride 100 ML @ 103 mls/hr IVPB Q6H [facility] Rx#:[id number] Zosyn 3.375 GM In 100 / 100 Dextrose 5% (Minibag+) 100 ML 100 ML @ 25 mls/hr IVPB Q8H [facility] Rx#: [id number] Vitamin B-1 200 MG In 52 / 52 52 / 52 Dextrose 5% 50 ML @ 52 mls/hr IVPB Q12H [facility] Rx#: [id number] Vancocin 1,000 MG In 250 / 250 Dextrose 5% 250 ML @ 167 mls/hr IVPB Q24H [facility] Rx#: [id number] Oral 0 / 0 0 / 0 Output: Catheter 0 / 0 0 / 0 0 / 0 Other: Blood Glucose* 151 - General Appearance General appearance: well-developed, well-nourished, sedated on ventilator, intubated EENT: ATNC Respiratory: course breath sounds Cardiology: no edema, regular rate, regular rhythm Gastrointestinal: hypoactive bowel sounds, no tenderness, no guarding Integumentary: warm and dry Additional Comments: sedated. Musculoskeletal: no cyanosis Additional Comments: unobtainable. Results - Lab Results 08/21/16 03:30 08/21/16 04:00 Most recent lab results ABG pH 7.22 pH Units (7.32-7.45) L 08/21/16 04:25 ABG pCO2 23 mmHg (35-45) L 08/21/16 04:25 ABG pO2 98 mmHg (85-104) 08/21/16 04:25 ABG HCO3 9.4 mEQ/L (21-27) L 08/21/16 04:25 ABG O2 Saturation 96 % (95-98) 08/21/16 04:25 Calcium 7.7 mg/dL (8.6-10.8) L D 08/21/16 04:00 Phosphorus 5.6 mg/dL (2.3-4.7) H 08/21/16 04:00 Magnesium 3.2 mg/dL (1.6-2.6) H 08/21/16 04:00 Consult Discharge Plan - Plan Referrals: NO,PCP [Primary Care Provider] -
[2016-08-22] MEDS: 0.9 % Sodium Chloride 1,000 ML IVC SCH (00:22)
[2016-08-22] MEDS: Dexmedetomidine HCl 400 MCG/100 ML MLS IVC SCH (00:23)
[2016-08-22] MEDS: Insulin LISPRO 300 UNITS/3 ML VIAL SQ SCH (00:25)
[2016-08-22] MEDS: Lacri-Lube 3.5 GM TUBE BOTH EYES SCH (00:26)
[2016-08-22] MEDS: FentaNYL (PF) 1,000 MCG in 0.9 % Sodium Chloride 80 ML IVC SCH (01:45)
[2016-08-22] MEDS: Piperacillin/Tazobactam 3.375 GM in D5% in Water (Mini-Bag+) 100 ML IVPB SCH (02:01)
[2016-08-22] MEDS: Norepinephrine 16 MG in D5% in Water 500 ML IVC SCH (03:03)
[2016-08-22 03:09] VITALS: BP 77/46
[2016-08-22] MEDS ORDERED: Aminoglycoside Consult 1 EACH MC ONE (07:04)
--- NOTE | 2016-08-22 07:45 | Discharge Summary ---
<Debi Moore - Last Filed: 08/22/16 10:13> Date of Encounter: 08/22/16 Time of Encounter: 07:43 - Discharge Diagnosis (1) Septic shock Priority: Primary Status: Acute (2) Acute respiratory failure Priority: Primary Status: Acute Qualifiers: Respiratory failure complication: hypoxia Qualified Code(s): J96.01 - Acute respiratory failure with hypoxia (3) MINH (acute kidney injury) Priority: Primary Status: Acute (4) CAD (coronary artery disease) Priority: Secondary Status: Chronic Qualifiers: Coronary Disease-Associated Artery/Lesion type: unspecified vessel or lesion type [place] vs. transplanted heart: [place] heart Associated angina: without angina Qualified Code(s): I25.10 - Atherosclerotic heart disease of [place] coronary artery without angina pectoris (5) Compression fracture of T12 vertebra Priority: Secondary Status: Chronic Qualifiers: Encounter type: sequela Qualified Code(s): M48.54XS - Collapsed vertebra, not elsewhere classified, thoracic region, sequela of fracture - Discharge Medications Home Medications: Atorvastatin [Lipitor] 80 mg PO HS 10/26/15 [History] Ezetimibe [Zetia] 10 mg PO DAILY 10/26/15 [History] Docusate [Colace] 100 mg PO BID PRN 11/13/15 [History] Buspirone HCl [Buspar] 5 mg PO TID 06/16/16 [History] HYDROcodone/Acet 5/325 mg [[place] 5-325 mg] 1 tab PO Q6H PRN 06/16/16 [History] Melatonin 3 mg PO HS tablet 06/18/16 [Rx] amLODIPine [Norvasc] 5 mg PO DAILY tablet 06/18/16 [Rx] Levothyroxine [Synthroid] 150 mcg PO DAILY 06/25/16 [History] Alendronate Sodium [Fosamax] 35 mg PO QWEEK 07/12/16 [History] Apixaban [Eliquis] 2.5 mg PO BID 07/12/16 [History] Calcium Citrate/Vitamin D3 [Calcium Citrate-Vit D3 Tablet] 1 tab PO DAILY [History] Telmisartan [Micardis] 80 mg PO DAILY 07/12/16 [History] ALPRAZolam [Xanax 0.25 MG Tablet] 0.25 mg PO TID PRN 08/20/16 [History] Multivitamin [Multi-Day Vitamins] 1 tab PO DAILY 08/20/16 [History] Naloxegol Oxalate [Movantik] 25 mg PO DAILY 08/20/16 [History] Polyethylene Glycol 3350 [MiraLAX bowel prep] 255 gm PO PRN PRN 08/20/16 [ History] Ranitidine HCl [Zantac] 150 mg PO BID 08/20/16 [History] Venlafaxine [Effexor] 37.5 mg PO DAILY 08/20/16 [History] Vit A/Vit C/Vit E/Zinc/Copper [Preservision Areds Tablet] 1 tab PO DAILY [History] Allergies/Adverse Reactions: Allergies lactose Allergy (Verified 06/16/16 19:56) Vomiting Labs on day of discharge: Labs from last 24 hours 08/21/16 08/21/16 17:53 08:45 POC Glucose 122 H Ionized Calcium 1.08 L - Impressions ITS Impressions Liver Ultrasound 08/20/16 18:00 IMPRESSION: Cholelithiasis. No cholecystitis. Echogenicity of the liver is at the upper limits normal, either technical or due to mild fatty infiltration D/ / Han Ramirez MD / Han Ramirez MD Interpreting Provider: Han Ramirez MD Date of admission: 08/21/16 10:28 Primary care physician: PCP NO Consults: 08/21/16 08:59 Consult to Nephrology [CONS] Routine Consulting Provider: Kidney Margy/JOSE EDUARDO/EILEEN/SRUTHI Reason for Consult: Acute renal injury secondary to septic shock, Anuria Call Completed: Yes 08/21/16 15:06 Consult to Palliative Care [CONS] Routine Comment: Consulting Provider: Palliative Care Margy Reason for Consult: discussion of end of life planning Time Notified: 10:00 Call Completed: Yes Discharging clinician: Rich Andrew Anticipated date of discharge: 08/22/16 - Patient Status Disposition: - Discharge Instructions Follow Up With: NO,PCP [Primary Care Provider] - - Hospital Course Hospital course: Mr. Rodriguez is a 85 year old male with past medical history significant for chronic A. fib, CAD, hypertension, hyperlipidemia, peripheral artery disease, thyroid disease, anxiety, depression who presents to [facility] by [facility] from [place] [facility]. Patient presented to the [place] ED with difficulty breathing and change in mental status. Patient was obtunded and non-verbal at the time of presentation and was intubated. His complained that the patient had "not been himself" for the previous 3 days. The patient was found to be in septic shock and was resuscitated with 7.5 L of IV fluid, required levo fed, epinephrine, vasopressin to maintain blood pressures in the 80s systolic. The patient had MINH, lactate of 13.7, acidosis, firm abdomen. The patient had no urine output. The patient was cultured and started on broad-spectrum antibiotics. The patient was in critical condition with minimal improvement in his condition in the setting of worsening laboratory findings. Multiple discussions of the patient's current status and prognosis were discussed with the patient's who stated that the patient would not wish to continue with aggressive sedation. At 0321 the patient's heart rate was noted to be in the 40s with a non-capturing rhythm. At 0331 the patient was noted to have no pulse , no heart tones, no blood pressure confirmed by [address] Dickens, who pronounced the patient at 0338. - Time Spent with Patient Total time spent providing and/or coordinating discharge services: Physical Examination Patient <Rich Andrew - Last Filed: 08/22/16 12:36> Date of Encounter: 08/22/16 Labs on day of discharge: Labs from last 24 hours 08/21/16 17:53 POC Glucose 122 H - Impressions ITS Impressions Liver Ultrasound 08/20/16 18:00 IMPRESSION: Cholelithiasis. No cholecystitis. Echogenicity of the liver is at the upper limits normal, either technical or due to mild fatty infiltration D/ / Han Ramirez MD / Han Ramirez MD Interpreting Provider: Han Ramirez MD Date of admission: 08/21/16 10:28 Primary care physician: PCP NO Consults: 08/21/16 08:59 Consult to Nephrology [CONS] Routine Consulting Provider: Kidney Margy/JOSE EDUARDO/EILEEN/SRUTHI Reason for Consult: Acute renal injury secondary to septic shock, Anuria Call Completed: Yes 08/21/16 15:06 Consult to Palliative Care [CONS] Routine Comment: Consulting Provider: Palliative Care Margy Reason for Consult: discussion of end of life planning Time Notified: 10:00 Call Completed: Yes - Hospital Course Hospital course: Mr. Rodriguez is a 85 year old male - Time Spent with Patient Total time spent providing and/or coordinating discharge services: - Attending Attestation I examined this patient and my medical decision-making was reviewed with the [employer] FILLER/PA/Advanced Practice Nurse/Resident Physician. I agree with the documented findings, disposition and treatment plan as described except to the extent set forth below. Patient with septic shock and multiple vasopressors without significant response to that treatment and unfortunately patient . Family understood his condition was critical.
[2016-08-22] MEDS ORDERED: Vancomycin 1 EACH in EMPTY BAG 1 EACH IVPB SCH (09:00)
== END 2016-08-22 07:05 | disposition expired | DRG 871 ==
LOC: ICNU
PROVIDERS: ADMIT Hospitalist; ATTEND Internal Medicine